=== PATIENT | female | born 1950 | race Caucasian/White ===

== ENCOUNTER 2016-11-14 10:04 | Emergency (ER) | payer MEDICARE, MEDICAID ==
--- NOTE | 2016-11-14 10:32 | ED.PDOC ---
History of Present Illness - General Chief Complaint: Abdominal Pain Stated Complaint: abdominal discomfort right upper quadrant Time Seen by Provider: 11/14/16 10:15 Information Source: patient, RN notes reviewed, Vital Signs reviewed Exam Limitations: no limitations - History of Present Illness Initial Comments: Patient stated that for the last one week had dull intermittent RUQ pain radiating to her back not related to food intake,no diarrhea,good bm felt nauseated at times ,bloated feeling at bedtime.Seen at her md's office 0ne month ago for left sided abdominal pain ct/abd-p:09/23/16-did not show acute findings had also gallbladder sono-no evidence of cholelithiasis or cholecystitis.She was being treated for gi reflux which relieved her left sided abdominal pain with protonix but did not refill prescriptions. Abdominal Pain Onset Location: RUQ Pain Radiation: back Quality: dull, intermittent Timing/Duration: 1 week Improving Factors: nothing Worsening Factors: nothing Associated Symptoms: nausea/vomiting, other - bloated feeling Review of Systems - Review of Systems Constitutional: States: no symptoms reported EENTM: States: no symptoms reported Respiratory: States: no symptoms reported Cardiology: States: no symptoms reported Gastrointestinal/Abdominal: States: see HPI, abdominal pain - ruq Genitourinary: States: no symptoms reported Musculoskeletal: States: no symptoms reported Skin: States: no symptoms reported Neurological: States: no symptoms reported Hematologic/Lymphatic: States: no symptoms reported Past Medical History (General) - Patient Medical History Hx Seizures: No Hx Stroke: Yes - CVA Hx Asthma: No Hx of COPD: No - smoker 2 ppd 40 years Hx Cardiac Disorders: No Hx Congestive Heart Failure: No Hx Pacemaker: No Hx Hypertension: Yes Hx Diabetes: Yes Hx MRSA: No Surgical History: other - cystoscopy 2 months ago for blood in urine done by Dr. Donald-urologist Other Surgeries:: hysterectomy,lumbar,eye,colonoscopy - Vaccination History Hx Tetanus, Diphtheria Vaccination: No Hx Influenza Vaccination: No Hx Pneumococcal Vaccination: No - Social History Hx Tobacco Use: Yes Hx Alcohol Use: No Hx Substance Use: No Hx Substance Use Treatment: No Hx Depression: No Hx Physical Abuse: No Hx Emotional Abuse: No - Female History Patient : No Family Medical History - Family History Mother Family History: Unknown Living Status: Age at (years of age): 71 Cause of : Lung cancer/smoker Hx Family Hypertension: Yes - several family members Hx Family Stroke: Yes - multiple family members Hx Cardiac Disease: Yes - multiple family members Hx Family Cancer: Yes - colon-brother,ovary sister Physical Exam - Physical Exam General Appearance: Alert, Comfortable, No apparent distress Eyes, Ears, Nose, Throat Exam: PERRL/EOMI, normal ENT inspection, TMs normal, pharynx normal Neck: non-tender, full range of motion, supple, normal inspection Respiratory: chest non-tender, lungs clear, normal breath sounds, no respiratory distress, no accessory muscle use Cardiovascular/Chest: normal peripheral pulses, regular rate, rhythm, no edema, no gallop, no JVD, no murmur Peripheral Pulses: No deficit Gastrointestinal/Abdominal: normal bowel sounds, soft, no organomegaly, no pulsatile mass, tenderness - ruq,no peritoneal signs positive murphys Back Exam: normal inspection, no CVA tenderness, no vertebral tenderness Extremity: normal range of motion, non-tender, normal inspection Neurologic: no motor/sensory deficits, alert, normal mood/affect, abnormal cerebellar tests Skin Exam: normal color, warm/dry Lymphatic: no adenopathy Progress - Progress Progress: 11/14/16 12:37 Patient stated RUQ pain getting less after ivf and protonix iv. 11/14/16 12:52 - Results/Orders Results/Orders: 11/14/16 10:35 URINALYSIS Stat 11/14/16 10:45 EKG STAT 11/14/16 11:47 Abdoment/Pelvis w/o Contrast [CT] Stat Laboratory Results WBC 12.4 K/mm3 (4.8-10.8) H 11/14/16 10:50 RBC 5.15 M/mm3 (4.20-5.40) 11/14/16 10:50 Hgb 14.8 gm/dL (12.0-16.0) 11/14/16 10:50 Hct 44.3 % (36.0-47.0) 11/14/16 10:50 MCV 85.9 fl (81.0-99.0) 11/14/16 10:50 MCH 28.8 pg (27.0-31.0) 11/14/16 10:50 MCHC 33.5 g/dL (33.0-37.0) 11/14/16 10:50 RDW 13.3 % (11.5-14.5) 11/14/16 10:50 Plt Count 283 K/mm3 (130-400) 11/14/16 10:50 MPV 7.7 fl (7.40-10.4) 11/14/16 10:50 Absolute Neuts (auto) 8.90 K/uL (1.8-6.8) H 11/14/16 10:50 Absolute Lymphs (auto) 2.30 K/uL (1.0-3.4) 11/14/16 10:50 Absolute Monos (auto) 0.80 K/uL (0.2-0.8) 11/14/16 10:50 Absolute Eos (auto) 0.10 K/uL (0.0-0.4) 11/14/16 10:50 Absolute Basos (auto) 0.20 K/uL (0.0-0.1) H 11/14/16 10:50 Neutrophils % 72.1 % (42.0-78.0) 11/14/16 10:50 Lymphocytes % 18.5 % (20.0-50.0) L 11/14/16 10:50 Monocytes % 6.9 % (2.0-9.0) 11/14/16 10:50 Eosinophils % 1.2 % (1.0-5.0) 11/14/16 10:50 Basophils % 1.3 % (0.0-2.0) 11/14/16 10:50 Sodium 136 mmol/L (135-145) 11/14/16 10:50 Potassium 3.9 mmol/L (3.6-5.0) 11/14/16 10:50 Chloride 105 mmol/L (101-111) 11/14/16 10:50 Carbon Dioxide 25 mmol/L (21-31) 11/14/16 10:50 Anion Gap 9.9 (12-18) L 11/14/16 10:50 BUN 13 mg/dL (7-18) 11/14/16 10:50 Creatinine 0.84 mg/dL (0.6-1.3) 11/14/16 10:50 BUN/Creatinine Ratio 15.5 (10-20) 11/14/16 10:50 Random Glucose 251 mg/dL (70-105) H 11/14/16 10:50 Serum Osmolality 280.5 mOsm/L (275-295) 11/14/16 10:50 Calcium 9.5 mg/dL (8.4-10.2) 11/14/16 10:50 Total Bilirubin 0.5 mg/dL (0.2-1.0) 11/14/16 10:50 AST 23 IU/L (10-42) 11/14/16 10:50 ALT 24 IU/L (10-60) 11/14/16 10:50 Alkaline Phosphatase 110 IU/L (42-121) 11/14/16 10:50 Serum Total Protein 7.4 gm/dL (6.4-8.2) 11/14/16 10:50 Albumin 4.1 g/dl (3.2-5.5) 11/14/16 10:50 Globulin 3.3 gm/dL (2.3-3.5) 11/14/16 10:50 Albumin/Globulin Ratio 1.2 (1.1-1.9) 11/14/16 10:50 Lipase 35 U/L (22-51) 11/14/16 10:50 11/14/16 10:45 EKG STAT Laboratory Results WBC 12.4 K/mm3 (4.8-10.8) H 11/14/16 10:50 RBC 5.15 M/mm3 (4.20-5.40) 11/14/16 10:50 Hgb 14.8 gm/dL (12.0-16.0) 11/14/16 10:50 Hct 44.3 % (36.0-47.0) 11/14/16 10:50 MCV 85.9 fl (81.0-99.0) 11/14/16 10:50 MCH 28.8 pg (27.0-31.0) 11/14/16 10:50 MCHC 33.5 g/dL (33.0-37.0) 11/14/16 10:50 RDW 13.3 % (11.5-14.5) 11/14/16 10:50 Plt Count 283 K/mm3 (130-400) 11/14/16 10:50 MPV 7.7 fl (7.40-10.4) 11/14/16 10:50 Absolute Neuts (auto) 8.90 K/uL (1.8-6.8) H 11/14/16 10:50 Absolute Lymphs (auto) 2.30 K/uL (1.0-3.4) 11/14/16 10:50 Absolute Monos (auto) 0.80 K/uL (0.2-0.8) 11/14/16 10:50 Absolute Eos (auto) 0.10 K/uL (0.0-0.4) 11/14/16 10:50 Absolute Basos (auto) 0.20 K/uL (0.0-0.1) H 11/14/16 10:50 Neutrophils % 72.1 % (42.0-78.0) 11/14/16 10:50 Lymphocytes % 18.5 % (20.0-50.0) L 11/14/16 10:50 Monocytes % 6.9 % (2.0-9.0) 11/14/16 10:50 Eosinophils % 1.2 % (1.0-5.0) 11/14/16 10:50 Basophils % 1.3 % (0.0-2.0) 11/14/16 10:50 Sodium 136 mmol/L (135-145) 11/14/16 10:50 Potassium 3.9 mmol/L (3.6-5.0) 11/14/16 10:50 Chloride 105 mmol/L (101-111) 11/14/16 10:50 Carbon Dioxide 25 mmol/L (21-31) 11/14/16 10:50 Anion Gap 9.9 (12-18) L 11/14/16 10:50 BUN 13 mg/dL (7-18) 11/14/16 10:50 Creatinine 0.84 mg/dL (0.6-1.3) 11/14/16 10:50 BUN/Creatinine Ratio 15.5 (10-20) 11/14/16 10:50 Random Glucose 251 mg/dL (70-105) H 11/14/16 10:50 Serum Osmolality 280.5 mOsm/L (275-295) 11/14/16 10:50 Calcium 9.5 mg/dL (8.4-10.2) 11/14/16 10:50 Total Bilirubin 0.5 mg/dL (0.2-1.0) 11/14/16 10:50 AST 23 IU/L (10-42) 11/14/16 10:50 ALT 24 IU/L (10-60) 11/14/16 10:50 Alkaline Phosphatase 110 IU/L (42-121) 11/14/16 10:50 Serum Total Protein 7.4 gm/dL (6.4-8.2) 11/14/16 10:50 Albumin 4.1 g/dl (3.2-5.5) 11/14/16 10:50 Globulin 3.3 gm/dL (2.3-3.5) 11/14/16 10:50 Albumin/Globulin Ratio 1.2 (1.1-1.9) 11/14/16 10:50 Lipase 35 U/L (22-51) 11/14/16 10:50 Urine Color Yellow (Yellow) 11/14/16 12:14 Urine Appearance Clear (Clear) 11/14/16 12:14 Urine pH 5.0 (4.5-7.8) 11/14/16 12:14 Ur Specific [place] 1.020 (1.005-1.030) 11/14/16 12:14 Urine Protein Negative mg/dL 11/14/16 12:14 Urine Glucose (UA) Negative mg/dL (Negative) 11/14/16 12:14 Urine Ketones Negative mg/dL (NEGATIVE) 11/14/16 12:14 Urine Blood Moderate (Negative) H 11/14/16 12:14 Urine Nitrite Negative 11/14/16 12:14 Urine Bilirubin Negative (NEGATIVE) 11/14/16 12:14 Urine Urobilinogen 0.2 mg/dL (0.2-1.0) 11/14/16 12:14 Ur Leukocyte Esterase Negative (Negative) 11/14/16 12:14 Urine RBC 5-10 /hpf H 11/14/16 12:14 Urine WBC 0 /hpf 11/14/16 12:14 Ur Epithelial Cells 1-3 /hpf 11/14/16 12:14 Urine Bacteria 0 11/14/16 12:14 CT ABD/PELVIS: no acute abnormalities noted - EKG/XRAY/CT XRAY: chest - no acute abnormalities noted Departure - Departure Clinical Impression: Right upper quadrant abdominal pain, Hematuria, microscopic, Fatty liver disease, nonalcoholic, Nicotine use disorder, Diabetes mellitus treated with insulin and oral medication Time of Disposition: 12:37 Disposition: Discharge to Home or Self Care Condition: Good Departure Forms: ED Discharge - Pt. Copy, Patient Portal Self Enrollment Instructions: DI for Abdominal Pain-Adult, Reasons to Quit Smoking, Smoking Cessation for Older Adults: It's Not Too Late!, Smoking Cessation Drugs: Nicotine Replacement Products, Nicotine Addiction Diet: low fat, low cholesterol, other - avoid spicy foods Referrals: Naldo Cervantes MD [Primary Care Provider] - 1-2 Weeks Prescriptions: Pantoprazole Sodium 40 mg PO BEDTIME #30 tab Home Medications: Ambulatory Orders Clonazepam 0.5 mg PO BEDTIME PRN 11/21/15 HYDROcodone 5MG/APAP 325MG [[place] 5/325] 1 - 2 tab PO Q4H PRN 11/21/15 Insulin Aspart [Novolog Flexpen] See Protocol SC ACHS 11/21/15 Insulin Glargine [Lantus Solostar] 12 unit SC DAILY 11/21/15 Metformin HCl 500 mg PO BID 11/21/15 Linaclotide [Linzess] 145 mcg PO DAILY 11/14/16 Pantoprazole Sodium 40 mg PO BEDTIME #30 tab 11/14/16 Pantoprazole Sodium [Protonix] 40 mg PO DAILY 11/14/16
[2016-11-14] MEDS ORDERED: PANTOPRAZOLE SODIUM IV 40 MG VIAL IV ONE (10:36)
--- NOTE | 2016-11-14 11:42 | RAD ---
EXAM DESCRIPTION: XR CHEST 2 VIEWS CLINICAL HISTORY: 65 y/o F, pain COMPARISON: None TECHNIQUE: Two views of the chest. FINDINGS: The lungs are clear. The heart is normal in size. There is no pneumothorax or pleural effusion. There is no acute fracture. IMPRESSION: No acute cardiopulmonary abnormality. Electronically signed by: Luis Parham MD 11/14/2016 11:41
[2016-11-14 11:44] VITALS: TEMP 97.6; O2SAT 95
--- NOTE | 2016-11-14 12:27 | CT ---
EXAM DESCRIPTION: CT ABDOMEN PELVIS WITHOUT IV CONTRAST CLINICAL HISTORY: 65 y/o F, abdominal pain COMPARISON: 09/23/2016. TECHNIQUE: Axial CT images were obtained from the lung bases down to the pubic symphysis without IV contrast. Sagittal coronal reformats were performed. DLP 561 FINDINGS: The lung bases are clear. The liver is hypodense. The gallbladder, pancreas, spleen, and adrenal glands are unremarkable. Both kidneys appear unremarkable. There is no evidence of nephrolithiasis or hydronephrosis. There is no intraperitoneal free air or fluid. There is no lymphadenopathy. There is a small hiatal hernia. The small bowel is unremarkable. The appendix is normal. The colon is incompletely distended scattered diverticular noted without evidence of diverticulitis. There are changes of a hysterectomy. The urinary bladder is unremarkable. Again noted is a lucent lesion with sclerotic margins along the left iliac bone. IMPRESSION: No acute findings. Small hiatal hernia. Fatty liver. Electronically signed by: Luis Parham MD 11/14/2016 12:25
[2016-11-14 13:26] VITALS: BP 132/71
== END 2016-11-14 13:00 | disposition home or self-care (01) ==
LOC: ER 10:04
DX: K76.0 Fatty (change of) liver, not elsewhere classified (principal); R31.9 Hematuria, unspecified; E11.9 Type 2 diabetes mellitus without complications; Z79.4 Long term (current) use of insulin; F17.200 Nicotine dependence, unspecified, uncomplicated; Z86.73 Personal history of transient ischemic attack (TIA), and cerebral infarction without residual deficits; Z80.1 Family history of malignant neoplasm of trachea, bronchus and lung

== ENCOUNTER → 2016-11-24 | Outpatient (CLI) | payer MEDICARE, MEDICAID | LOC: LAB.NP 15:29 | PROVIDERS: ATTEND Family Medicine | DX: K76.0 Fatty (change of) liver, not elsewhere classified (principal); R76.0 Raised antibody titer; R31.29 Other microscopic hematuria; R93.8 Abnormal findings on diagnostic imaging of other specified body structures ==

== ENCOUNTER → 2016-11-27 | Outpatient (CLI) | payer MEDICARE, MEDICAID ==
--- NOTE | 2016-11-30 07:41 | MRI ---
EXAM DESCRIPTION: MR PELVIS WITHOUT IV CONTRAST CLINICAL HISTORY: 65 y/o F, centrally lucent peripherally sclerotic left iliac bone lesion on CT November 14, 2006 T COMPARISON: None TECHNIQUE: Noncontrast MR imaging pelvis standard protocol FINDINGS: The left iliac bone lesion is nonaggressive in appearance. This appears to contain fatty elements as well as sclerotic component. 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 This lesion dates back to at least 2011 on previous [address]s. There are small Tarlov cysts/dural ectasia in the upper sacrum. No active sacroiliitis. No acute fracture. No aggressive destructive pelvic lesion. The left iliacus lesion measures approximately 2.8 cm in AP dimension by 1.3 cm wide by 2.9 cm craniocaudal. Mild right greater trochanteric bursal edema. No osteonecrosis of the hips. No acute fracture of the hips. There is degenerative disc disease in the lower lumbar spine. Transitional lumbosacral anatomy at L5-S1. 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
== END | disposition home or self-care (01) ==
LOC: MRI 13:53
PROVIDERS: ATTEND Family Medicine
DX: M85.68 Other cyst of bone, other site (principal)

== ENCOUNTER → 2016-12-22 | Outpatient (CLI) | payer MEDICARE, MEDICAID | LOC: GMAM 14:07 | PROVIDERS: ATTEND Family Medicine | DX: M25.50 Pain in unspecified joint (principal); R31.29 Other microscopic hematuria; I10 Essential (primary) hypertension; E11.9 Type 2 diabetes mellitus without complications ==

== ENCOUNTER → 2016-12-29 | Outpatient (CLI) | payer MEDICARE, MEDICAID | END | disposition home or self-care (01) | LOC: GMAM 14:32 | PROVIDERS: ATTEND Family Medicine | DX: R31.29 Other microscopic hematuria (principal) ==

== ENCOUNTER → 2017-05-14 | Outpatient (CLI) | payer MEDICARE, MEDICAID | END | disposition home or self-care (01) | LOC: GMAM 13:12 | PROVIDERS: ATTEND Family Medicine | DX: Z79.899 Other long term (current) drug therapy (principal) ==

== ENCOUNTER → 2017-07-01 | Outpatient (CLI) | payer MEDICARE, MEDICAID | END | disposition home or self-care (01) | LOC: LAB.O 08:44 | PROVIDERS: ATTEND Nurse Practitioner Family | DX: R19.7 Diarrhea, unspecified (principal) ==

== ENCOUNTER → 2017-08-06 | Outpatient (CLI) | payer MEDICARE, MEDICAID | END | disposition home or self-care (01) | LOC: GMAM 12:05 | PROVIDERS: ATTEND Family Medicine | DX: R19.7 Diarrhea, unspecified (principal) ==

== ENCOUNTER → 2017-08-10 | Outpatient (CLI) | payer MEDICARE, MEDICAID | END | disposition home or self-care (01) | LOC: GMAM 14:27 | PROVIDERS: ATTEND Family Medicine | DX: Z79.899 Other long term (current) drug therapy (principal) ==

== ENCOUNTER → 2017-08-11 | Outpatient (CLI) | payer MEDICARE, MEDICAID ==
--- NOTE | 2017-08-12 14:22 | CT ---
EXAM DESCRIPTION: Abdomen/Pelvis w/o Contrast: CT. CLINICAL HISTORY: RUQ PAIN COMPARISON: None. TECHNIQUE: Spiral-axial scans 5.0 mm intervals through the abdomen and pelvis without oral or IV contrast. Coronal and sagittal coronal and sagittal 2.0 mm reconstructions. Total Exam DLP: 444.56 mGy-cm. This exam was performed according to our departmental CT dose-optimization program which includes automated exposure control, adjustment of the mA and/or kV according to patient size and/or use of iterative reconstruction technique; to reduce radiation dose to as low as reasonably achievable (ALARA). FINDINGS: Lung bases and pleura: Unremarkable. Liver, stomach, spleen, and adrenal glands: Minimally decreased density diffusely in the liver. Normal size. Spleen and adrenal glands are unremarkable. Small sliding hiatal hernia. Pancreas, Gallbladder, and Ducts: Layering densities possibly sludge or small stones in the gallbladder. Proximal common bile duct dilated. Normal size and density in the spleen. Kidneys and Ureters: Negative. Mesentery: No stranding fascial thickening free fluid or free air. Aorta: Minimal atherosclerotic calcification with no aneurysm. No para-aortic mass. Small Bowel: Contains gas and fluid with no distention or significant wall thickening. Minimal fecalization in the distal ileum. Terminal Ileum/Cecum: Normal caliber. Normal caliber and density of the appendix. Normal density of the surrounding mesentery. Colon: Minimal fecal material. Not distended. Small diverticula in the distal colon with no signs of inflammation. Pelvic Organs: Vaginal cuff is unremarkable. No fluid in the cul-de-sac. Ovarian tissue is not seen. Spine and Bony Pelvis: Interbody fusion device at L4-5 with posterior decompression. Bilateral foraminal narrowing. Anterior spondylosis L2-3 posterior disc bulge. Spondylosis in the inferior thoracic spine. Minimal gas formation in the SI joints. Hypertrophic changes bilateral acetabula. Abdominal Wall/Back Soft Tissues: Periumbilical hernia not containing bowel. Small bilateral fatty hernias not containing bowel. IMPRESSION: 1. Mild fatty infiltration/steatosis of the liver without enlargement. This can be due to a variety of metabolic and toxic conditions. No ascites. 2. Possible layering sludge or stones in the gallbladder. Dilation of the proximal common bile duct. Please see ultrasound right upper quadrant abdomen examination and report. 3. Small sliding hiatal hernia. 4. Diverticulosis in the distal colon without evidence of inflammation. 5. Prior interbody lumbar fusion L4-5. Foraminal narrowing. Posterior disc bulge L2-3. 6. Small periumbilical fatty hernia not containing bowel. Bilateral small fatty inguinal hernias not containing bowel. Electronically signed by: Vito Dickey MD 08/12/2017 2:21 PM CDT
--- NOTE | 2017-08-12 14:32 | US ---
EXAM DESCRIPTION: Gall Bladder: ULTRASOUND. CLINICAL HISTORY: RUQ PAIN COMPARISON: CT scan of abdomen and pelvis without contrast on this visit. TECHNIQUE: Transabdominal scannin-dimensional and Doppler modes. FINDINGS: The gallbladder is normal in size, shape, and echogenicity, with no intraluminal stones or sludge. No fluid around the gallbladder. No wall thickening. 2.7 mm. Common bile duct caliber is 5.7 mm which is within normal limits. . No stones in the visualized portion of the duct. Not tender with transducer pressure. The liver demonstrates increased echogenicity; contour of the liver capsule is smooth where seen. No fluid around the liver. Intrahepatic biliary ducts are non-dilated. Craniocaudal dimension in the mid-clavicular axis is 14.4 cm. Pancreas head, body, tail normal in size and echogenicity. Pancreatic duct is not dilated. Normal Doppler vascularity in the carlos hepatis. Abdominal aorta proximal 2.5 cm. IVC visualized and normal caliber. Right kidney measures 9.4 x 5.1 x 3.6 cm. Normal mid renal cortical thickness. Echogenicity normal with no hydronephrosis, no large calcifications, and no perinephric fluid. Contour smooth and vascularity normal. Proximal ureter not visualized. IMPRESSION: 1. Normal ultrasound of the gallbladder and ducts. No sludge or stones. Normal ducts caliber. If clinical suspicion for gallbladder disease is discordant with these findings, consider radionuclide hepatobiliary imaging. 2. Fatty infiltration/steatosis minimal in the liver with no enlargement. Normal intrahepatic ducts. No ascites. 3. Normal ultrasound of the pancreas and right kidney. Electronically signed by: Vito Dickey MD 08/12/2017 2:31 PM CDT
== END ==
LOC: CT 14:56
PROVIDERS: ATTEND Family Medicine
DX: K44.9 Diaphragmatic hernia without obstruction or gangrene (principal); K42.9 Umbilical hernia without obstruction or gangrene; K57.30 Diverticulosis of large intestine without perforation or abscess without bleeding; R79.82 Elevated C-reactive protein (CRP); R79.9 Abnormal finding of blood chemistry, unspecified; R19.7 Diarrhea, unspecified; I50.31 Acute diastolic (congestive) heart failure; K76.0 Fatty (change of) liver, not elsewhere classified

== ENCOUNTER → 2017-09-14 | Outpatient (CLI) | payer MEDICARE, MEDICAID | END | disposition home or self-care (01) | LOC: GMAM 11:01 | PROVIDERS: ATTEND Family Medicine | DX: K76.0 Fatty (change of) liver, not elsewhere classified (principal); R94.5 Abnormal results of liver function studies ==

== ENCOUNTER 2017-09-29 16:01 | Emergency (ER) | payer MEDICARE, MEDICAID ==
[2017-09-29] MEDS ORDERED: SODIUM CHLORIDE 0.9% 1000ML 1,000 ML IVS ONE (17:20)
--- NOTE | 2017-09-29 17:24 | ED.PDOC ---
History of Present Illness - General Chief Complaint: GI Problem Stated Complaint: nausea/vomiting/ diahrrea Time Seen by Provider: 09/29/17 16:31 Source: patient Exam Limitations: no limitations - History of Present Illness Initial Comments: [address] HEBERT, HER REG DR, HAS CDIFF W/U IN PROCESS. A RESULT, PT DEHYDRATED AND FEELS WEAK. DENIES NEED FOR NAUSEA MED PRESENTLY. Severity: moderate Improving Factors: nothing Worsening Factors: nothing Associated Symptoms: nausea/vomiting, weakness Allergies/Adverse Reactions: Allergies NO KNOWN ALLERGY Allergy (Verified 02/16/15 20:41) Home Medications: Ambulatory Orders Clonazepam 0.5 mg PO BEDTIME PRN 11/21/15 HYDROcodone 5MG/APAP 325MG [[place] 5/325] 1 - 2 tab PO Q4H PRN 11/21/15 Insulin Aspart [Novolog Flexpen] See Protocol SC ACHS 11/21/15 Insulin Glargine [Lantus Solostar] 12 unit SC DAILY 11/21/15 Metformin HCl 500 mg PO BID 11/21/15 Linaclotide [Linzess] 145 mcg PO DAILY 11/14/16 Pantoprazole Sodium 40 mg PO BEDTIME #30 tab 11/14/16 Pantoprazole Tablet [Protonix] 40 mg PO DAILY 11/14/16 Review of Systems - Review of Systems Constitutional: States: weakness. Denies: chills, fever EENTM: States: no symptoms reported Respiratory: States: no symptoms reported Cardiology: States: no symptoms reported Gastrointestinal/Abdominal: States: diarrhea, nausea, vomiting. Denies: abdominal pain, constipation Genitourinary: Denies: dysuria, frequency Musculoskeletal: States: no symptoms reported Skin: States: no symptoms reported Neurological: States: headache, weakness - GENERALIZED. Denies: tingling Endocrine: States: no symptoms reported Hematologic/Lymphatic: States: no symptoms reported All other Systems: Reviewed and Negative Past Medical History (General) - Patient Medical History Hx Seizures: No Hx Stroke: Yes - 6-7 years ago Hx Dementia: No Hx Asthma: No Hx of COPD: No Hx Cardiac Disorders: No Hx Congestive Heart Failure: No Hx Pacemaker: No Hx Hypertension: No Hx Thyroid Disease: No Hx Diabetes: Yes Hx Gastroesophageal Reflux: Yes Hx Renal Disease: No Hx Cancer: No Hx of HIV: No Hx Hepatitis C: No Hx MRSA: No Surgical History: Hysterectomy, other - Vaccination History Hx Tetanus, Diphtheria Vaccination: No Hx Influenza Vaccination: Yes Hx Pneumococcal Vaccination: No Immunizations Up to Date: No - Social History Hx Tobacco Use: Yes Hx Chewing Tobacco Use: No Hx Alcohol Use: No Hx Substance Use: No Hx Substance Use Treatment: No Hx Depression: No Feels Threatened In Home Enviroment: No Feels Threatened In a Relationship: No Hx Physical Abuse: No Hx Emotional Abuse: No Hx Suspected Abuse: No - Activities of Daily Living Hospice Agency (if applicable):: None - Female History Patient is a Female of Child Bearing Age (10 -59 yrs old): No Patient : No Family Medical History - Family History Mother Family History: Unknown Living Status: Age at (years of age): 71 Cause of : Lung cancer/smoker Hx Family Hypertension: Yes - several family members Hx Family Stroke: Yes - multiple family members Hx Cardiac Disease: Yes - multiple family members Hx Family Cancer: Yes - colon-brother,ovary sister Physical Exam - Physical Exam General Appearance: Alert, Other - UNCOMFORTABLE Eye Exam: bilateral normal Ears, Nose, Throat: hearing grossly normal, normal ENT inspection Neck: full range of motion, supple Respiratory: chest non-tender, lungs clear, normal breath sounds Cardiovascular/Chest: normal peripheral pulses, regular rate, rhythm Peripheral Pulses: radial,right: 2+, radial,left: 2+ Gastrointestinal/Abdominal: non tender, soft, other - HYPERACTIVE BOWEL SOUNDS. Back Exam: no CVA tenderness Extremity: normal range of motion, normal inspection Neurologic: no motor/sensory deficits, alert, normal mood/affect Skin Exam: normal color, warm/dry Lymphatic: no adenopathy Progress - Results/Orders Results/Orders: REPEAT SBP 147. PT FEELING IMPROVED ENERGY AFTER BOLUS. CMP AND UA UNREMARKABLE. CBC WBC 12.5, ELEV NEUTS. I SURMISE SHE HAS CDIFF WITH 3 MOS DIARRHEA AND NEUTROPHILIC LEUKOCYTOSIS, RESULTING IN DEHYDRATION AND GEN WEAKNESS. PT ALREADY TAKES PROBIOTICS DAILY. DC TO HOME WITH F/U WITH PCP TO POSSIBLE TAKE 3RD TEST FOR CDIFF. Departure - Departure Clinical Impression: Dehydration, Generalized weakness, Nausea & vomiting, Diarrhea, Neutrophilic leukocytosis Disposition: Discharge to Home or Self Care Condition: Fair Departure Forms: ED Discharge - Pt. Copy, Patient Portal Self Enrollment Instructions: Diarrhea Diet: resume usual diet Activity: increase activity as tolerated Referrals: Naldo Hebert MD [Primary Care Provider] - 1-5 Days Home Medications: Ambulatory Orders Clonazepam 0.5 mg PO BEDTIME PRN 11/21/15 HYDROcodone 5MG/APAP 325MG [[place] 5/325] 1 - 2 tab PO Q4H PRN 11/21/15 Insulin Aspart [Novolog Flexpen] See Protocol SC ACHS 11/21/15 Insulin Glargine [Lantus Solostar] 12 unit SC DAILY 11/21/15 Metformin HCl 500 mg PO BID 11/21/15 Linaclotide [Linzess] 145 mcg PO DAILY 11/14/16 Pantoprazole Sodium 40 mg PO BEDTIME #30 tab 11/14/16 Pantoprazole Tablet [Protonix] 40 mg PO DAILY 11/14/16 Additional Instructions: Please drink at least 64 oz per day of water to replace the fluids you are losing. Please follow-up with your regular doctor for possible 3rd C.Diff test. It was good meeting you. I hope you feel better soon.
[2017-09-29 18:35] VITALS: BP 134/60; TEMP 97.1; O2SAT 97
== END 2017-09-29 19:06 | disposition home or self-care (01) ==
LOC: ER 16:01
DX: E86.0 Dehydration (principal); R53.1 Weakness; R11.2 Nausea with vomiting, unspecified; D72.828 Other elevated white blood cell count; R19.7 Diarrhea, unspecified; E11.9 Type 2 diabetes mellitus without complications; K21.9 Gastro-esophageal reflux disease without esophagitis; Z79.899 Other long term (current) drug therapy; Z86.73 Personal history of transient ischemic attack (TIA), and cerebral infarction without residual deficits
CPT/HCPCS: 36415; 80053; 81001; 85025; J7030

== ENCOUNTER → 2017-12-08 | Outpatient (CLI) | payer MEDICARE, MEDICAID | LOC: GMATM 20:03 | PROVIDERS: ATTEND Nurse Practitioner Family | DX: R53.83 Other fatigue (principal) ==

== ENCOUNTER → 2018-01-14 | Outpatient (CLI) | payer MEDICARE, MEDICAID | LOC: GMAM 13:45 | PROVIDERS: ATTEND Family Medicine | DX: R53.83 Other fatigue (principal); E78.2 Mixed hyperlipidemia; E55.9 Vitamin D deficiency, unspecified; R30.0 Dysuria; E53.8 Deficiency of other specified B group vitamins; E11.9 Type 2 diabetes mellitus without complications ==

== ENCOUNTER → 2018-02-03 | Outpatient (CLI) | payer MEDICARE, MEDICAID | LOC: GMAM 16:50 | PROVIDERS: ATTEND Family Medicine | DX: R30.0 Dysuria (principal); M54.5 Low back pain ==

== ENCOUNTER → 2018-03-18 | Outpatient (CLI) | payer MEDICARE, MEDICAID | LOC: GMATM 11:53 | PROVIDERS: ATTEND Nurse Practitioner Family | DX: N39.0 Urinary tract infection, site not specified (principal); M54.5 Low back pain ==

== ENCOUNTER → 2018-04-14 | Outpatient (CLI) | payer MEDICARE, MEDICAID | LOC: GMAJS 17:34 | PROVIDERS: ATTEND Physician Assistant | DX: R30.0 Dysuria (principal) ==

== ENCOUNTER → 2018-07-27 | Outpatient (CLI) | payer MEDICARE, MEDICAID ==
--- NOTE | 2018-07-28 08:42 | MRI ---
Study: MRI of the Right Shoulder. Indication: PAIN Technique: Multiplanar, multi sequence MRI of the right shoulder was obtained without intravenous contrast. Comparison: None. Findings: Mild hypertrophic AC joint osteoarthritis. Type I acromion with moderate lateral downsloping. Supraspinatus and infraspinatus tendinosis with scattered bursal surface fraying of both tendons. At the critical zone of the mid to posterior supraspinatus tendon there is irregular low to intermediate grade articular tearing measuring approximately 12 mm AP by 5 mm transverse. No full-thickness extension or tendon retraction. Mild interstitial fissuring of the infraspinatus tendon insertion noted with minimal ganglion formation along the anterior and mid myotendinous junction which measures up to 12 mm. Subscapularis tendinosis. Teres minor tendon intact. Rotator cuff musculature normal without atrophy, fatty infiltration, or intramuscular edema. Intracapsular long head biceps tendinosis. Mild cystic change posterolateral greater tuberosity. Circumferential labral truncation and degeneration. Mild glenohumeral joint osteoarthritis. No acute fracture. Thickening and edema inferior glenohumeral ligament which can be seen with adhesive capsulitis. Impression: Supraspinatus and infraspinatus tendinosis with scattered bursal surface fraying of both tendons as well as intermediate grade articular tearing throughout the mid to posterior supraspinatus critical zone. Additional mild interstitial fissuring of the infraspinatus tendon noted. Subscapularis tendinosis. Intracapsular long head biceps tendinosis. Circumferential labral truncation and degeneration. Mild glenohumeral joint osteoarthritis. Adhesive capsulitis. Mild hypertrophic AC joint osteoarthritis. Electronically signed by: Jasvir Shields MD 07/28/2018 8:40 AM CDT
== END ==
LOC: MRI 10:00
PROVIDERS: ATTEND Family Medicine
DX: M75.01 Adhesive capsulitis of right shoulder (principal); M19.011 Primary osteoarthritis, right shoulder

== ENCOUNTER → 2018-08-04 | Outpatient (CLI) | payer MEDICARE, MEDICAID ==
--- NOTE | 2018-08-04 17:30 | US ---
EXAM DESCRIPTION: Venous,Upper Extremity RT CLINICAL HISTORY: SWELLING OF RIGHT ARM COMPARISON: None Available. TECHNIQUE: Right upper extremity venous duplex FINDINGS: Doppler evaluation of the right upper extremity deep veins was performed. Normal color flow is seen in the internal jugular and subclavian veins as well as right axillary and brachial and basilic veins. Radial and ulnar venous flow is depicted. No cephalic vein images. Normal venous compressibility and flow augmentation. IMPRESSION: Negative for evidence of deep venous thrombosis on right upper extremity venous Doppler sonogram. Electronically signed by: Ceferino Haines MD 08/04/2018 5:29 PM CDT
== END ==
LOC: US 09:00
PROVIDERS: ATTEND Family Medicine
DX: R60.9 Edema, unspecified (principal)

== ENCOUNTER → 2018-08-19 | Outpatient (CLI) | payer MEDICARE, MEDICAID ==
--- NOTE | 2018-08-19 13:09 | RAD ---
EXAM DESCRIPTION: Shoulder,Right 2 or More Views CLINICAL HISTORY: 67 years Female, PAIN IN RT SHOULDER COMPARISON: Radiographs dated 07/26/2018. FINDINGS: The visualized bones are well-mineralized.No acute fracture or dislocation. The soft tissues appear grossly unremarkable. Mild acromioclavicular and glenohumeral joint osteoarthritis. IMPRESSION: Mild acromioclavicular and glenohumeral joint osteoarthritis. Electronically signed by: Carley Beck MD 08/19/2018 1:08 PM CDT
== END ==
LOC: RAD 11:00
PROVIDERS: ATTEND Orthopaedic Surgery
DX: M19.011 Primary osteoarthritis, right shoulder (principal); M25.511 Pain in right shoulder

== ENCOUNTER 2018-11-07 10:56 | Emergency (ER) | payer MEDICARE, MEDICAID ==
--- NOTE | 2018-11-07 11:43 | RAD ---
EXAM DESCRIPTION: Chest,1 View CLINICAL HISTORY: 67 years Female, cough COMPARISON: None. TECHNIQUE: AP portable chest. FINDINGS: Heart size is normal with normal pulmonary vascularity. No consolidating infiltrate. No pulmonary mass or worrisome nodule. No pneumothorax or pleural effusion. Bones are unremarkable. IMPRESSION: No acute process is identified in the chest. Electronically signed by: Ceferino Haines MD 11/07/2018 11:41 AM [employer]
[2018-11-07] MEDS ORDERED: IPRATROPIUM/ALBUTEROL 3 ML VIAL NEB ONE (11:53)
[2018-11-07] MEDS ORDERED: ONDANSETRON INJ 4 MG/2 ML VIAL IV ONE (11:54)
[2018-11-07] MEDS ORDERED: MORPHINE SULFATE INJ 10 MG/ML VIAL IV ONE (11:55)
--- NOTE | 2018-11-07 11:58 | ED.PDOC ---
History of Present Illness - General Chief Complaint: Respiratory Problem Stated Complaint: cough, shortness of breath Time Seen by Provider: 11/07/18 11:18 Source: patient Exam Limitations: no limitations - History of Present Illness Comments: Four day hx of cough with chest pain, SOB, and nausea over last 2 days Timing/Duration: week Cough Quality/Degree: productive cough Possible Cause: occasional episodes Improving Factors: nothing Worsening Factors: movement Associated Symptoms: chest pain/soreness, cough, dizziness, fever/chills, headache, muscle aches Allergies/Adverse Reactions: Allergies NO KNOWN ALLERGY Allergy (Verified 02/16/15 20:41) Home Medications: Ambulatory Orders Clonazepam 0.5 mg PO BEDTIME PRN 11/21/15 HYDROcodone 5MG/APAP 325MG [[place] 5/325] 1 - 2 tab PO Q4H PRN 11/21/15 Insulin Aspart [Novolog Flexpen] See Protocol SC ACHS 11/21/15 Insulin Glargine [Lantus Solostar] 12 unit SC DAILY 11/21/15 Metformin HCl 500 mg PO BID 11/21/15 Linaclotide [Linzess] 145 mcg PO DAILY 11/14/16 Pantoprazole Sodium 40 mg PO BEDTIME #30 tab 11/14/16 Pantoprazole Tablet [Protonix] 40 mg PO DAILY 11/14/16 Azithromycin Tab [Zithromax Tab] 250 mg PO QDAC #6 tab 11/07/18 Ondansetron [Zofran Odt] 4 mg PO Q4HR PRN #14 tab 11/07/18 Sucralfate Suspension [Carafate Suspension] 10 ml PO AC #500 ml 11/07/18 Review of Systems - Review of Systems Constitutional: States: chills, fever, weakness EENTM: States: no symptoms reported Respiratory: States: cough, short of breath Cardiology: States: chest pain. Denies: edema Gastrointestinal/Abdominal: States: nausea, vomiting. Denies: abdominal pain, diarrhea Genitourinary: States: no symptoms reported Musculoskeletal: States: muscle pain Skin: States: no symptoms reported Neurological: States: headache Endocrine: States: no symptoms reported Hematologic/Lymphatic: States: no symptoms reported Past Medical History (General) - Patient Medical History Hx Seizures: No Hx Stroke: Yes - 6-7 years ago Hx Dementia: No Hx Asthma: No Hx of COPD: No Hx Cardiac Disorders: No Hx Congestive Heart Failure: No Hx Pacemaker: No Hx Hypertension: Yes Hx Thyroid Disease: No Hx Diabetes: Yes Hx Gastroesophageal Reflux: Yes Hx Renal Disease: No Hx Cancer: No Hx of HIV: No Hx Hepatitis C: No Hx MRSA: No Surgical History: other - Vaccination History Hx Tetanus, Diphtheria Vaccination: No Hx Influenza Vaccination: Yes Hx Pneumococcal Vaccination: No - Social History Hx Tobacco Use: Yes Hx Chewing Tobacco Use: No Hx Alcohol Use: No Hx Substance Use: No Hx Substance Use Treatment: No Hx Depression: No Hx Physical Abuse: No Hx Emotional Abuse: No Hx Suspected Abuse: No - Female History Patient : No Family Medical History - Family History Mother Family History: Unknown Living Status: Age at (years of age): 71 Cause of : Lung cancer/smoker Hx Family Hypertension: Yes - several family members Hx Family Stroke: Yes - multiple family members Hx Cardiac Disease: Yes - multiple family members Hx Family Cancer: Yes - colon-brother,ovary sister Physical Exam - Physical Exam General Appearance: Alert, Obvious distress Eye Exam: bilateral normal ENT Exam: normal ENT inspection, hearing grossly normal, pharynx normal Neck: full range of motion, normal inspection Respiratory: decreased breath sounds, rhonchi Cardiovascular/Chest: regular rate, rhythm, no edema Gastrointestinal/Abdominal: normal bowel sounds, non tender, soft Extremity: normal range of motion, non-tender, no pedal edema Neurologic: alert, normal mood/affect, oriented x 3 Progress - EKG/XRAY/CT EKG: Sinus, no ST T wave changes Comments: rate 90, NH 160, QRS 100 Departure - Departure Clinical Impression: Bronchitis Gastroesophageal reflux disease Qualifiers: Esophagitis presence: with esophagitis Qualified Code(s): K21.0 - Gastro- esophageal reflux disease with esophagitis Disposition: Discharge to Home or Self Care Condition: Fair Departure Forms: ED Discharge - Pt. Copy, Patient Portal Self Enrollment Referrals: Naldo Cervantes MD [Primary Care Provider] - 1-2 Weeks Prescriptions: Ondansetron [Zofran Odt] 4 mg PO Q4HR PRN #14 tab PRN Reason: Nausea Azithromycin Tab [Zithromax Tab] 250 mg PO QDAC #6 tab Sucralfate Suspension [Carafate Suspension] 10 ml PO AC #500 ml Home Medications: Ambulatory Orders Clonazepam 0.5 mg PO BEDTIME PRN 11/21/15 HYDROcodone 5MG/APAP 325MG [[place] 5/325] 1 - 2 tab PO Q4H PRN 11/21/15 Insulin Aspart [Novolog Flexpen] See Protocol SC ACHS 11/21/15 Insulin Glargine [Lantus Solostar] 12 unit SC DAILY 11/21/15 Metformin HCl 500 mg PO BID 11/21/15 Linaclotide [Linzess] 145 mcg PO DAILY 11/14/16 Pantoprazole Sodium 40 mg PO BEDTIME #30 tab 11/14/16 Pantoprazole Tablet [Protonix] 40 mg PO DAILY 11/14/16 Azithromycin Tab [Zithromax Tab] 250 mg PO QDAC #6 tab 11/07/18 Ondansetron [Zofran Odt] 4 mg PO Q4HR PRN #14 tab 11/07/18 Sucralfate Suspension [Carafate Suspension] 10 ml PO AC #500 ml 11/07/18
[2018-11-07] MEDS ORDERED: ALUM & MAG HYDROX-SIMETHICONE 30 ML, LIDOCAINE VISCOUS 2% 15 ML PO ONE ×2 (13:20)
[2018-11-07] MEDS ORDERED: ALUM & MAG HYDROX-SIMETHICONE 30 ML UD ONE (13:22)
[2018-11-07] MEDS ORDERED: LIDOCAINE HCL 2% (MOUTH-THROAT) 15 ML UD ONE (13:22)
[2018-11-07 14:05] VITALS: BP 121/67; TEMP 99.1; O2SAT 96
== END 2018-11-07 13:55 | disposition home or self-care (01) ==
LOC: ER 10:56
DX: J40 Bronchitis, not specified as acute or chronic (principal); K21.0 Gastro-esophageal reflux disease with esophagitis; I10 Essential (primary) hypertension; E11.9 Type 2 diabetes mellitus without complications; Z87.891 Personal history of nicotine dependence; Z86.73 Personal history of transient ischemic attack (TIA), and cerebral infarction without residual deficits; Z79.4 Long term (current) use of insulin; Z79.899 Other long term (current) drug therapy
CPT/HCPCS: 36415; 71045; 80053; 85025; 87040; 94640; J2270; J2405; J7620

== ENCOUNTER → 2018-11-28 | Outpatient (CLI) | payer MEDICARE, MEDICAID | LOC: GMAL 16:50 | PROVIDERS: ATTEND Family Medicine | DX: E53.8 Deficiency of other specified B group vitamins (principal); R53.83 Other fatigue; E55.9 Vitamin D deficiency, unspecified ==

== ENCOUNTER 2018-12-06 01:52 | Emergency (ER) | payer MEDICARE, MEDICAID ==
--- NOTE | 2018-12-06 02:20 | ED.PDOC ---
History of Present Illness - General Chief Complaint: ENT Problem Stated Complaint: EYe and ear pain Time Seen by Provider: 12/06/18 02:14 Source: patient Exam Limitations: no limitations - History of Present Illness Initial Comments: Patient presents with a cough for one week. It is productive of green sputum. She also has had a fever. She complains of otalgia in the right ear and green eye exudate. She said that she was given Keflex two days ago but doesn't know what for. She said she couldn't take it because it made her weak. She went to the doctor again today and said that she was tested for the flu but doesn't know the result. She is a poor historian who generalizes almost every question but the previously mentioned seem to be her major concern. Timing/Duration: 1 week Severity: moderate Improving Factors: nothing Worsening Factors: nothing Associated Symptoms: other - see HPI Allergies/Adverse Reactions: Allergies NO KNOWN ALLERGY Allergy (Verified 02/16/15 20:41) Home Medications: Ambulatory Orders Clonazepam 0.5 mg PO BEDTIME PRN 11/21/15 HYDROcodone 5MG/APAP 325MG [[place] 5/325] 1 - 2 tab PO Q4H PRN 11/21/15 Insulin Aspart [Novolog Flexpen] See Protocol SC ACHS 11/21/15 Insulin Glargine [Lantus Solostar] 12 unit SC DAILY 11/21/15 Metformin HCl 500 mg PO BID 11/21/15 Linaclotide [Linzess] 145 mcg PO DAILY 11/14/16 Pantoprazole Sodium 40 mg PO BEDTIME #30 tab 11/14/16 Pantoprazole Tablet [Protonix] 40 mg PO DAILY 11/14/16 Azithromycin Tab [Zithromax Tab] 250 mg PO QDAC #6 tab 11/07/18 Ondansetron [Zofran Odt] 4 mg PO Q4HR PRN #14 tab 11/07/18 Sucralfate Suspension [Carafate Suspension] 10 ml PO AC #500 ml 11/07/18 Azithromycin Tab [Zithromax Tab] 250 mg PO QD #4 tab 12/06/18 Benzonatate Perles [Tessalon Perles] 100 mg PO Q6HRS PRN #20 cap 12/06/18 Review of Systems - Review of Systems Constitutional: States: fever EENTM: States: see HPI Respiratory: States: see HPI Cardiology: States: no symptoms reported Gastrointestinal/Abdominal: States: no symptoms reported Genitourinary: States: no symptoms reported Musculoskeletal: States: no symptoms reported Skin: States: no symptoms reported Neurological: States: no symptoms reported Endocrine: States: no symptoms reported Hematologic/Lymphatic: States: no symptoms reported Past Medical History (General) - Patient Medical History Hx Seizures: No Hx Stroke: Yes - 6-7 years ago Hx Dementia: No Hx Asthma: No Hx of COPD: No Hx Cardiac Disorders: No Hx Congestive Heart Failure: No Hx Pacemaker: No Hx Hypertension: Yes Hx Thyroid Disease: No Hx Diabetes: Yes Hx Gastroesophageal Reflux: Yes Hx Renal Disease: No Hx Cancer: No Hx of HIV: No Hx Hepatitis C: No Hx MRSA: No Surgical History: Hysterectomy - Vaccination History Hx Tetanus, Diphtheria Vaccination: No Hx Influenza Vaccination: No Hx Pneumococcal Vaccination: No - Social History Hx Tobacco Use: Yes Hx Chewing Tobacco Use: No Hx Alcohol Use: No Hx Substance Use: No Hx Substance Use Treatment: No Hx Depression: No Hx Physical Abuse: No Hx Emotional Abuse: No Hx Suspected Abuse: No - Female History Patient is a Female of Child Bearing Age (10 -59 yrs old): No Patient : No - Triage Comment ED Triage Comment: saw today and tested for flu. Given antibiotic, unsure of name Family Medical History - Family History Mother Family History: Unknown Living Status: Age at (years of age): 71 Cause of : Lung cancer/smoker Hx Family Hypertension: Yes - several family members Hx Family Stroke: Yes - multiple family members Hx Cardiac Disease: Yes - multiple family members Hx Family Cancer: Yes - colon-brother,ovary sister Physical Exam - Physical Exam General Appearance: Alert Eye Exam: bilateral normal Ears, Nose, Throat: normal ENT inspection Neck: non-tender, full range of motion, supple Respiratory: wheezing - scattered wheezing in all lung lantigua, L>R Cardiovascular/Chest: regular rate, rhythm, no edema Gastrointestinal/Abdominal: normal bowel sounds, non tender, soft Skin Exam: normal color Lymphatic: no adenopathy Progress - Progress Progress: 12/06/18 03:48 Laboratory Tests 12/06/18 12/06/18 12/06/18 02:28 02:45 02:45 WBC 20.7 H* RBC 5.11 Hgb 15.0 Hct 44.6 MCV 87.3 MCH 29.3 MCHC 33.5 RDW 13.8 Plt Count 355 MPV 7.5 Absolute Neuts (auto) 14.80 H Absolute Lymphs (auto) 4.00 H Absolute Monos (auto) 1.60 H Absolute Eos (auto) 0.20 Absolute Basos (auto) 0.10 Neutrophils % Not Reportable Neutrophils % (Manual) 72.0 Lymphocytes % Not Reportable Lymphocytes % (Manual) 21.0 Monocytes % Not Reportable Monocytes % (Manual) 4.0 Eosinophils % Not Reportable Basophils % Not Reportable Band Neutrophils 2.0 Eosinophils 1.0 Platelet Estimate Normal Normal RBC Morphology 1+aniso RBC Morphology 1+aniso Anisocytosis RBC Morph Comment Plts estefanía adequate Sodium 135 Potassium 3.4 L Chloride 98 L Carbon Dioxide 27 Anion Gap 13.4 BUN 19 H Creatinine 1.04 BUN/Creatinine Ratio 18.3 Random Glucose 145 H Serum Osmolality 274.9 L Calcium 8.8 Urine Color Urine Appearance Urine pH Ur Specific [place] Urine Protein Urine Glucose (UA) Urine Ketones Urine Blood Urine Nitrite Urine Bilirubin Urine Urobilinogen Ur Leukocyte Esterase Urine RBC Urine WBC Ur Epithelial Cells Urine Bacteria Group A Strep Rapid Negative 12/06/18 12/06/18 02:45 02:51 WBC RBC Hgb Hct MCV MCH MCHC RDW Plt Count MPV Absolute Neuts (auto) Absolute Lymphs (auto) Absolute Monos (auto) Absolute Eos (auto) Absolute Basos (auto) Neutrophils % Neutrophils % (Manual) 72.0 Lymphocytes % Lymphocytes % (Manual) 21.0 Monocytes % Monocytes % (Manual) 4.0 Eosinophils % Basophils % Band Neutrophils 2.0 Eosinophils 1.0 Platelet Estimate Normal RBC Morphology RBC Morphology Anisocytosis 1+ RBC Morph Comment Plts estefanía adequate Sodium Potassium Chloride Carbon Dioxide Anion Gap BUN Creatinine BUN/Creatinine Ratio Random Glucose Serum Osmolality Calcium Urine Color Yellow Urine Appearance Clear Urine pH 5.0 Ur Specific [place] 1.025 Urine Protein Negative Urine Glucose (UA) Negative Urine Ketones Negative Urine Blood Small H Urine Nitrite Negative Urine Bilirubin Negative Urine Urobilinogen 0.2 Ur Leukocyte Esterase Negative Urine RBC 3-5 H Urine WBC 1-3 Ur Epithelial Cells 0 Urine Bacteria 0 Group A Strep Rapid CXR unremarkable. Patient was given Toradol 30 mg IM x one for the ear pain azithromycin due to the wheezing, tobacco use, increasing sputum, fever, and overall higher risk for pneumonia. Patient has a follow up appointment with her pcp tomorrow. Tessalon 200 mg po x one given in the E.D. RX for Tessalon and azithromycin given. E.R. warnings given. Care instructions given. Questions were elicited and answered. The patient voiced understanding and agreement with the plan. Departure - Departure Clinical Impression: Upper respiratory infection, Fever, Cough Disposition: Discharge to Home or Self Care Condition: Good Departure Forms: ED Discharge - Pt. Copy, Patient Portal Self Enrollment Instructions: DI for Ear Pain-Adult, Viral Upper Respiratory Infection, Adult (DC) Diet: diabetic diet Activity: increase activity as tolerated Referrals: Naldo Cervantes MD [Primary Care Provider] - 1-2 Weeks Prescriptions: Benzonatate Perles [Tessalon Perles] 100 mg PO Q6HRS PRN #20 cap PRN Reason: Cough Azithromycin Tab [Zithromax Tab] 250 mg PO QD #4 tab Home Medications: Ambulatory Orders Clonazepam 0.5 mg PO BEDTIME PRN 11/21/15 HYDROcodone 5MG/APAP 325MG [[place] 5/325] 1 - 2 tab PO Q4H PRN 11/21/15 Insulin Aspart [Novolog Flexpen] See Protocol SC ACHS 11/21/15 Insulin Glargine [Lantus Solostar] 12 unit SC DAILY 11/21/15 Metformin HCl 500 mg PO BID 11/21/15 Linaclotide [Linzess] 145 mcg PO DAILY 11/14/16 Pantoprazole Sodium 40 mg PO BEDTIME #30 tab 11/14/16 Pantoprazole Tablet [Protonix] 40 mg PO DAILY 11/14/16 Azithromycin Tab [Zithromax Tab] 250 mg PO QDAC #6 tab 11/07/18 Ondansetron [Zofran Odt] 4 mg PO Q4HR PRN #14 tab 11/07/18 Sucralfate Suspension [Carafate Suspension] 10 ml PO AC #500 ml 11/07/18 Azithromycin Tab [Zithromax Tab] 250 mg PO QD #4 tab 12/06/18 Benzonatate Perles [Tessalon Perles] 100 mg PO Q6HRS PRN #20 cap 12/06/18 Additional Instructions: Follow up with your regular doctor today as scheduled. Drink more fluids.
--- NOTE | 2018-12-06 02:52 | RAD ---
CLINICAL HISTORY: cough and fever COMPARISON: None. TECHNIQUE: XR CHEST 2 VIEWS 12/06/2018 2:27 AM [employer]ATOR FINDINGS: Cardiac silhouette is normal in size. Lungs are clear without consolidation, atelectasis, mass or edema. There is no pleural effusion. There is no pneumothorax. There are no acute osseous findings. IMPRESSION: Clear lungs. Electronically signed by: Branden Arango MD 12/06/2018 2:49 AM [employer]PERATIONS SUPPORT COORDINATOR
[2018-12-06] MEDS ORDERED: BENZONATATE PERLES 100 MG CAP PO ONE (02:57)
[2018-12-06] MEDS ORDERED: KETOROLAC TROMETHAMINE INJ 30 MG/ML VIAL IM ONE (03:23)
[2018-12-06] MEDS ORDERED: AZITHROMYCIN 250 MG TAB PO ONE (03:28)
[2018-12-06 04:03] VITALS: BP 140/81; TEMP 100.1; O2SAT 96
== END 2018-12-06 04:14 | disposition home or self-care (01) ==
LOC: ER 01:52
DX: J06.9 Acute upper respiratory infection, unspecified (principal); H92.01 Otalgia, right ear; I10 Essential (primary) hypertension; E11.9 Type 2 diabetes mellitus without complications; K21.9 Gastro-esophageal reflux disease without esophagitis; Z86.73 Personal history of transient ischemic attack (TIA), and cerebral infarction without residual deficits; Z79.899 Other long term (current) drug therapy; Z87.891 Personal history of nicotine dependence
CPT/HCPCS: 71046; 80048; 81001; 85025; 87070; 87502; 87880; J1885; Q0144

== ENCOUNTER → 2018-12-12 | Outpatient (CLI) | payer MEDICARE, MEDICAID | LOC: GMAM 17:45 | PROVIDERS: ATTEND Family Medicine | DX: R51 Headache (principal) ==

== ENCOUNTER → 2018-12-14 | Outpatient (CLI) | payer MEDICARE, MEDICAID ==
--- NOTE | 2018-12-14 14:05 | CT ---
EXAM DESCRIPTION: Head CLINICAL HISTORY: HEADACHE COMPARISON: Previous CT head March 03, 2010, previous MRI of the brain January 05, 2014 TECHNIQUE: Noncontrast head CT was performed with routine protocol. FINDINGS: Normal hernandez-white matter differentiation. Ventricles and sulci are normal for age. No high density hemorrhage, focal edema or shift of the midline. No sulcal effacement. Normal orbital contents. Basilar cisterns appear clear. Intact calvarium with no fracture or lytic lesion. Normal aeration of tympanic cavities and mastoid air cells. No fluid levels in the paranasal sinuses. Skull base appears intact. Symmetrical internal auditory canals. Coronal and sagittal reformatted images confirm the findings. IMPRESSION: No acute intracranial pathologic process. This exam was performed according to our departmental dose-optimization program, which includes automated exposure control, adjustment of the mA and/or kV according to patient size and/or use of iterative reconstruction technique. Total DLP equals 644.98 mGycm. Electronically signed by: Ceferino Haines MD 12/14/2018 2:02 PM [facility]
--- NOTE | 2018-12-14 14:14 | CT ---
EXAM DESCRIPTION: Sinuses CLINICAL HISTORY: HEADACHE COMPARISON: None Available. TECHNIQUE: CT of the paranasal sinuses is performed with direct axial imaging technique. Multiplanar reformatted images are reviewed post along with source images. FINDINGS: Lower portions of the brain appear normal. Normal orbital contents. The globes appear symmetrical. Axial images show clear paranasal sinuses with no fluid levels or mucosal thickening. At the level of the mid maxillary sinuses, there is leftward nasal septal deviation 4 mm. Intact lamina papyracea bilaterally. Normal aeration of tympanic cavities and visualized mastoid air cells. Symmetrical internal auditory canals. Coronal reformatted images show normal middle ear ossicles. No erosion of the scutum on either side. Normal osseous appearance of the inner ear structures bilaterally. Left sphenoid sinus bony septum extends to the carotid floor. No carotid bony dehiscence. No pneumatization of the anterior clinoids. No Onodi cell pneumatization. In the plane of the ostiomeatal units, normal aeration of maxillary sinus ostia is seen with 1 mm mucosal thickening slightly narrowing the right. Normal aeration of hiatus semilunaris and middle meatus regions. At the level of the anterior maxillary sinuses, there is leftward nasal septal deviation 4 mm. Symmetrical right and left sides of the cribriform plate. The right olfactory fossa measures 3.4 mm in depth and the left measures 2.7 mm, Keros type II. No evidence of old medial or inferior orbital blowout fracture. No anterior ethmoidal arterial exposure. Sagittal images show sellar pneumatization pattern of the sphenoid sinus. The upper clivus/posterior sphenoid sinus wall at its thinnest point measures 0.7 mm. No bony dehiscence of the sella. Bony septum in the lateral left maxillary sinus incidentally noted. IMPRESSION: Clear paranasal sinuses. This exam was performed according to our departmental dose-optimization program, which includes automated exposure control, adjustment of the mA and/or kV according to patient size and/or use of iterative reconstruction technique. Electronically signed by: Ceferino Haines MD 12/14/2018 2:11 PM [employer]
== END ==
LOC: CT 13:30
PROVIDERS: ATTEND Family Medicine
DX: R51 Headache (principal)

== ENCOUNTER → 2019-02-27 | Outpatient (CLI) | payer MEDICARE, MEDICAID | LOC: GMAM 17:17 | PROVIDERS: ATTEND Family Medicine | DX: R53.83 Other fatigue (principal) ==

== ENCOUNTER → 2019-03-24 | Outpatient (CLI) | payer MEDICARE, MEDICAID ==
--- NOTE | 2019-03-24 21:46 | CT ---
Procedure: CT LUNG SCREENING Exam Date: 03/24/2019. Ordering Provider: Tim Hernandez Clinical Indication: LOW DOSE LUNG SCREEN current cigarette smoker. 38 pack years. This patient meets eligibility criteria for low-dose CT lung cancer screening. Comparison: Chest x-ray November 2018. Technique: Using a multislice scanner, sequential helical axial imaging was obtained in the thorax, 2.5 mm thickness, 2.5 mm separation, from the level of the thoracic inlet through the lung bases without IV contrast. A low dose protocol was utilized for BMI less than 30: BMI: 24.9. CTDI: 1.76 mGy. 120. kVp. 45 mA. DLP 60.97 mGy centimeters. 2D sagittal and coronal reconstructed images, 6.0 mm thickness, were obtained. This exam was performed according to our departmental dose optimization program which includes use of automated exposure control, adjustment of the mA and/or kV according to patient size and/or use of iterative reconstruction technique. Nodule measurements under 10 mm are given as mean value of 3 axes diameters. FINDINGS: Lungs and large airways: Small parenchymal blebs mostly in the upper lung lantigua bilaterally. 3 mm subpleural nodule posterior left lower lobe on axial series 2, image 79. No mass or focal infiltrate. Pleural parenchymal scarring in the inferior lingula. Pleura and space: Bilateral scattered foci of focal thickening. No effusion or pneumothorax bilaterally.. Mediastinum and chanelle: evaluation limited by low dose technique and lack of IV contrast. Small nodes not enlarged and no large soft tissue mass; no fluid or air. Heart and great vessels: Minimal atherosclerotic calcification in the aorta. Chest wall, lower neck, axillae: Evaluation also limited by same factors as described above. Well-defined nodule in the right thyroid lobe with calcification. Lymph nodes are not enlarged. Upper abdomen: Included peritoneal space is unremarkable. Included organs with normal density. Osseous structures: Evaluation limited by low dose MIP technique. Minimal spondylosis. Minimal arthrosis. No lytic or blastic lesions. IMPRESSION: 1. Small 3 mm subpleural nodule posterior left lower lobe. No larger nodules or masses. No focal infiltrates. Minimal emphysematous changes.. [facility] Best Practice recommendations: Please see below for Lung RADS category and FOLLOW-UP.* *Lung RADS category CATEGORY 2S- Nodules with a very low likelihood (less than 1%) of becoming a clinically active cancer due to size or lack of growth. Nodules: Solid or part solid nodule(s) less than 6mm, new solid nodule less than 4mm. Ground glass nodule(s) less than 20mm or unchanged or slow growing ground glass nodule 20mm or greater. Cat 3 or 4 nodule unchanged for 3 or more months. FOLLOW-UP: Continue annual screening with a Low Dose Chest CT in 12 months for re-evaluation. 2. Lung RADS Modifier S - Clinically Significant or Potentially Clinically Significant Findings (non lung cancer). Incidental thyroid nodule suspected, but size is indeterminate. If incidental thyroid nodule < 1.5 cm, no follow-up imaging is recommended; if >= 1.5 cm, recommend thyroid US. Since nodule contains calcification and lung screening resolution is decreased in the thyroid gland, thyroid ultrasound is recommended. Reference: J Am [employer]. 2015 Nov;12(2): 143-50 Electronically signed by: Vito Dickey MD 03/24/2019 9:44 PM CDT
== END ==
LOC: CT 15:26
PROVIDERS: ATTEND Internal Medicine
DX: Z87.891 Personal history of nicotine dependence (principal); R91.1 Solitary pulmonary nodule; J44.9 Chronic obstructive pulmonary disease, unspecified; J30.9 Allergic rhinitis, unspecified

== ENCOUNTER → 2019-04-21 | Outpatient (CLI) | payer MEDICARE, MEDICAID ==
--- NOTE | 2019-04-21 11:52 | US ---
EXAM DESCRIPTION: Venous,Lower Extremity RT: ULTRASOUND. CLINICAL HISTORY: PAIN IN RIGHT LOWER LEG COMPARISON: None Available. TECHNIQUE: Dsouza-scale and doppler sonographic evaluation of the deep venous system of the right lower extremity. FINDINGS: Doppler evaluation shows normal color flow and normal phasicity and augmentation of the right common femoral vein, femoral vein, popliteal vein, greater saphenous vein, peroneal, and posterior tibial vein. The right lower extremity deep veins were completely compressible; normal occlusion with transducer pressure. Dsouza-scale survey showed no echogenic thrombus within these veins. At the location of palpable mass medial distal in the, no dominant soft tissue mass, free fluid, cyst, or venous thrombus. IMPRESSION: 1. Duplex ultrasound evaluation of the right lower extremity deep venous system showing no evidence of thrombosis. 2. No cyst or free fluid or mass is palpable. Electronically signed by: Vito Dickey MD 04/21/2019 11:46 AM CDT
== END ==
LOC: US 10:48
PROVIDERS: ATTEND Physician Assistant
DX: M79.661 Pain in right lower leg (principal)

== ENCOUNTER → 2019-05-16 | Outpatient (CLI) | payer MEDICARE, MEDICAID ==
--- NOTE | 2019-05-16 15:16 | CT ---
EXAM DESCRIPTION: Abdomen/Pelvis w/wo Contrast: Computed Tomography. CLINICAL HISTORY: HEMATURIA. Frequent UTIs. COMPARISON: Abdominal pelvic CT scan 06/11/2017. TECHNIQUE: Spiral-axial scans at 5 x 5 mm intervals through the abdomen and pelvis before and after Optiray 320 nonionic IV contrast. No oral contrast. Coronal and sagittal 2.0 mm reconstructions. 5 mm Delayed helical-axial scans, liver through the pubic symphysis. No adverse reactions. Total Exam DLP 1004.73 mGy - cm. This exam was performed according to our departmental CT dose-optimization program which includes automated exposure control, adjustment of the mA and/or kV according to patient size and/or use of iterative reconstruction technique; to reduce radiation dose to as low as reasonably achievable (ALARA). FINDINGS: Lung bases and pleura: 3 mm subpleural nodule left lower lobe stable since the lung screening CT scan in February 2019. Liver, Stomach, Spleen, Adrenal Glands: Long axis right lobe craniocaudal 17.5 cm. Overall fatty density with no focal lesions. Possible small hiatal hernia. Other solid organs are negative. Pancreas, Gallbladder, Ducts: Gallbladder visualized. Normal caliber of the duct. Pancreas unremarkable. Kidneys and Ureters: Negative. No stones, no hydronephrosis, no perirenal fluid. Normal caliber of the ureters. No periureteral edema. Mesentery: Unremarkable. Aorta: Minimal atherosclerotic changes. Small Bowel: Normal caliber with minimal gas and fluid. Terminal Ileum/Cecum: Normal caliber. Appendix visualized. Normal density of the surrounding fat. Colon: Nondistended with minimal fecal material. Small diverticula in the sigmoid with no complications. Pelvic Organs: No radiodense stones in the urinary bladder. No free fluid in the cul-de-sac. Vaginal cuff unremarkable. Spine and Bony Pelvis: Minimal hypertrophic changes in the bilateral superior lateral acetabular facets with partial over coverage of the femoral heads. Minimal spondylosis lower lumbar spine with interbody fusion L4-L5. Abdominal Wall/Back Soft Tissues: Bilateral small fatty inguinal hernias not containing bowel. Umbilical diastases not containing bowel. IMPRESSION: 1. No CT abnormality seen in the ureters, kidneys, or urinary bladder. 2. Fatty liver and mild enlargement. Possible small hiatal hernia. 3. Minimal constipation of the colon with minimal diverticulosis sigmoid colon with no complications. Electronically signed by: Vito Dickey MD 05/16/2019 3:14 PM CDT
== END ==
LOC: CT 10:51
PROVIDERS: ATTEND Urology
DX: N30.21 Other chronic cystitis with hematuria (principal); K76.0 Fatty (change of) liver, not elsewhere classified; K59.00 Constipation, unspecified; K57.30 Diverticulosis of large intestine without perforation or abscess without bleeding

== ENCOUNTER → 2019-05-17 | Outpatient (CLI) | payer MEDICARE, MEDICAID ==
--- NOTE | 2019-05-17 12:08 | US ---
EXAM DESCRIPTION: Gall Bladder: ULTRASOUND. CLINICAL HISTORY: RUQ ABD PN COMPARISON: CT abdomen and pelvis 05/16/2019. TECHNIQUE: Transabdominal scanning: Dsouza-scale and Doppler modes. FINDINGS: Gallbladder: normal size, shape, echogenicity; no intraluminal stones or sludge. No fluid around the gallbladder. No wall thickening. 2.0 mm. Non-tender with transducer pressure. Common bile duct: caliber 5.4 mm within normal limits. Liver: Increased echogenicity; contour liver capsule smooth where seen. No fluid around the liver. Intrahepatic biliary ducts normal caliber. Doppler hepatopedal flow portal vein.. Long axis right lobe cm Pancreas: normal size and echogenicity. Duct not seen. Aorta: Proximal aorta transverse 1.6 cm. Right kidney: 9.6 cm long axis. Normal cortical thickness and echogenicity. No hydronephrosis, no echogenic stones, no perinephric fluid.. IMPRESSION: 1. Fatty liver not enlarged. Normal caliber ducts and portal vein with normal hepatopedal flow. Smooth capsule with no ascites. 2. Right kidney, gallbladder, common bile duct, pancreas, and proximal aorta unremarkable. Electronically signed by: Vito Dickey MD 05/17/2019 12:06 PM CDT
== END ==
LOC: US 09:00
PROVIDERS: ATTEND Family Medicine
DX: K76.0 Fatty (change of) liver, not elsewhere classified (principal)

== ENCOUNTER → 2019-05-22 | Outpatient (CLI) | payer MEDICARE, MEDICAID ==
--- NOTE | 2019-05-22 17:36 | US ---
EXAM DESCRIPTION: Breast,Right (accession [id number]), Diagnostic Mammo,Bilateral (accession [id number]): Ultrasound CLINICAL HISTORY: 68 yearsFemaleRIGHT BREAST/AXILLARY LUMP AND SWELLING . No personal or family history of breast cancer. Sister with ovarian cancer. Childbirth. Postmenopausal. HRT 5 or more years ago. Prior benign cyst aspiration and biopsy right breast. Lifetime risk of developing breast cancer (Tyrer-Cuzick model)(%): 4.7 COMPARISON: None. TECHNIQUE: Bilateral CC, MLO, exaggerated right CC and LM projection full-field images, digital mammographic tomosynthesis technique. Bilateral 2-D digital full-field MLO images. CAD not utilized. . Transcutaneous scanning of the right breast utilizing hernandez-scale and Doppler modes. Scanning performed by the programming development project manager and Dr. Dickey. FINDINGS: The breast parenchymal density pattern is: Scattered areas of fibroglandular density. No skin thickening or nipple retraction . Marker placed over palpable region right axilla. Well-circumscribed nodular densities in the anterior middle third of the right breast. No focal, stellate mass or density, focal asymmetry , and no suspicious microcalcifications bilaterally. Ultrasound: Scanning of the right axilla and the upper outer quadrant of the right breast. Multiple hypoechoic masses are noted in the axilla which are well-circumscribed with eccentric echogenic regions which demonstrate vascularity by color Doppler. These are consistent with lymph nodes. This nodes measure 1 x 1 cm, 6 x 5 mm, and 6 x 4 mm. At the 12:00 position, 6 cm from the nipple, is a circumscribed hypoechoic solid nodule measuring 6.4 x 5.2 x 4.7 mm. Wider than tall orientation with acoustic shadowing. This could represent a reactive lymph node or fibroadenoma. No distinct cyst. No parenchymal edema or large calcifications. IMPRESSION: BI-RADS CATEGORY: 3 - PROBABLY BENIGN. Management: Short interval (6-month) follow-up or continued surveillance. The FINDINGS and the FOLLOW-UP plan were reviewed in person with the patient after the examination. Written communication explaining the IMPRESSION and FOLLOW-UP will be mailed to the patient and referring care provider. Electronically signed by: Vito Dickey MD 05/22/2019 5:35 PM CDT
== END ==
LOC: US 13:00
PROVIDERS: ATTEND Family Medicine
DX: N63.11 Unspecified lump in the right breast, upper outer quadrant (principal)

== ENCOUNTER 2019-06-29 | Emergency (ER) | payer MEDICARE, MEDICAID ==
--- NOTE | 2019-06-29 14:08 | ED.PDOC ---
History of Present Illness - General Chief Complaint: General Stated Complaint: L jaw swellign/pain Time Seen by Provider: 06/29/19 13:54 - History of Present Illness Initial Comments: The patient is a 68F with PMH significant for DM, cataracts, chronic headaches who presents to the ED complaining of facial pain and swelling. She states that she woke this morning with left sided neck swelling, minimal pain, no redness or fevers. She states that she placed ice to the area and the swelling improved. She went to eat lunch, however, and noticed a dramatic increase in the amount of swelling. Currently she states that it is improved but not resolved. She has minimal pain, no fevers. No other complaints at this time. Allergies/Adverse Reactions: Allergies Metformin and Related Allergy (Verified 06/29/19 13:55) Sulfamethoxazole w/Trimethoprim [From Bactrim] Allergy (Verified 06/29/19 13:55) Lidocaine Adverse Reaction (Verified 06/29/19 13:55) Home Medications: Ambulatory Orders Clonazepam 0.5 mg PO BEDTIME PRN 11/21/15 HYDROcodone 5MG/APAP 325MG [[place] 5/325] 1 - 2 tab PO Q4H PRN 11/21/15 Insulin Aspart [Novolog Flexpen] See Protocol SC ACHS 11/21/15 Insulin Glargine [Lantus Solostar] 12 unit SC DAILY 11/21/15 Metformin HCl [Metformin Hydrochloride] 500 mg PO BID 11/21/15 Linaclotide [Linzess] 145 mcg PO DAILY 11/14/16 Pantoprazole Sodium 40 mg PO BEDTIME #30 tab 11/14/16 Pantoprazole Tablet [Protonix] 40 mg PO DAILY 11/14/16 Azithromycin Tab [Zithromax Tab] 250 mg PO QDAC #6 tab 11/07/18 Ondansetron [Zofran Odt] 4 mg PO Q4HR PRN #14 tab 11/07/18 Sucralfate Suspension [Carafate Suspension] 10 ml PO AC #500 ml 11/07/18 Azithromycin Tab [Zithromax Tab] 250 mg PO QD #4 tab 12/06/18 Benzonatate Perles [Tessalon Perles] 100 mg PO Q6HRS PRN #20 cap 12/06/18 Review of Systems - Review of Systems Constitutional: Denies: chills, fever EENTM: States: other - left sided facial swelling. Denies: tearing, ear pain, ear discharge, nose congestion, throat pain, throat swelling, mouth pain Respiratory: Denies: cough, short of breath Cardiology: States: no symptoms reported Gastrointestinal/Abdominal: States: no symptoms reported Genitourinary: States: no symptoms reported Musculoskeletal: States: no symptoms reported Skin: States: lumps. Denies: change in color, rash Neurological: States: no symptoms reported Endocrine: States: no symptoms reported Hematologic/Lymphatic: States: no symptoms reported All other Systems: Reviewed and Negative Past Medical History (General) - Patient Medical History Hx Seizures: No Hx Stroke: No Hx Dementia: No Hx Asthma: No Hx of COPD: No Hx Cardiac Disorders: No Hx Congestive Heart Failure: No Hx Pacemaker: No Hx Hypertension: No Hx Thyroid Disease: No Hx Diabetes: Yes Hx Gastroesophageal Reflux: Yes Hx Renal Disease: No Hx Cancer: No Hx of HIV: No Hx Hepatitis C: No Hx MRSA: No Surgical History: Hysterectomy, other - Vaccination History Hx Tetanus, Diphtheria Vaccination: Yes Hx Influenza Vaccination: No Hx Pneumococcal Vaccination: Yes - Social History Hx Tobacco Use: Yes Hx Chewing Tobacco Use: No Hx Alcohol Use: No Hx Substance Use: No Hx Substance Use Treatment: No Hx Depression: No Hx Physical Abuse: No Hx Emotional Abuse: No Hx Suspected Abuse: No - Female History Patient is a Female of Child Bearing Age (10 -59 yrs old): No Patient : No Family Medical History - Family History Mother Family History: Unknown Living Status: Age at (years of age): 71 Cause of : Lung cancer/smoker Hx Family Hypertension: Yes - several family members Hx Family Stroke: Yes - multiple family members Hx Cardiac Disease: Yes - multiple family members Hx Family Cancer: Yes - colon-brother,ovary sister Physical Exam - Physical Exam General Appearance: Alert, Comfortable, No apparent distress, Well Developed, Well Nourished Eye Exam: bilateral normal Ears, Nose, Throat: normal ENT inspection, normal pharynx, other - There is mild parotid swelling on the left. There is no erythema and minimal tenderness. There is no purulence expressed from parotid duct. She is edentulous. Neck: non-tender, full range of motion, supple Respiratory: lungs clear, no respiratory distress Cardiovascular/Chest: regular rate, rhythm Neurologic: no motor/sensory deficits, alert, oriented x 3 Skin Exam: normal color Lymphatic: no adenopathy Progress - Progress Progress: MDM Patient presents to the ED with left parotid swelling, improved with ice and worse with eating. Not distressed on exam, there is no erythema or purulence. There is no purulence expressed from parotid duct. There is no lymphadenopathy. Suspect parotid sialolithiasis. Will continue outpatient management with sialagogue and follow up with PCP. Referral information for ENT provided. Home care instructions and return indications reviewed. Departure - Departure Clinical Impression: Parotid sialolithiasis Time of Disposition: 14:06 Disposition: Discharge to Home or Self Care Condition: Good Departure Forms: ED Discharge - Pt. Copy, Patient Portal Self Enrollment Diet: resume usual diet Activity: increase activity as tolerated Referrals: Naldo Cervantes MD [Primary Care Provider] - 1-2 Weeks JAROCHO PETTY MD [Consulting Staff] - 1 Week Home Medications: Ambulatory Orders Clonazepam 0.5 mg PO BEDTIME PRN 11/21/15 HYDROcodone 5MG/APAP 325MG [[place] 5/325] 1 - 2 tab PO Q4H PRN 11/21/15 Insulin Aspart [Novolog Flexpen] See Protocol SC ACHS 11/21/15 Insulin Glargine [Lantus Solostar] 12 unit SC DAILY 11/21/15 Metformin HCl [Metformin Hydrochloride] 500 mg PO BID 11/21/15 Linaclotide [Linzess] 145 mcg PO DAILY 11/14/16 Pantoprazole Sodium 40 mg PO BEDTIME #30 tab 11/14/16 Pantoprazole Tablet [Protonix] 40 mg PO DAILY 11/14/16 Azithromycin Tab [Zithromax Tab] 250 mg PO QDAC #6 tab 11/07/18 Ondansetron [Zofran Odt] 4 mg PO Q4HR PRN #14 tab 11/07/18 Sucralfate Suspension [Carafate Suspension] 10 ml PO AC #500 ml 11/07/18 Azithromycin Tab [Zithromax Tab] 250 mg PO QD #4 tab 12/06/18 Benzonatate Perles [Tessalon Perles] 100 mg PO Q6HRS PRN #20 cap 12/06/18 Additional Instructions: Resume usual diet. You may increase saliva production with the use of hard sour candies. Tylenol and motrin as needed for pain. Follow up with your primary care provider or ENT. Comments: Alex Foster MD Emergency Medicine Physician Number [id number]
== END 2019-06-29 14:20 | disposition home or self-care (01) ==

== ENCOUNTER → 2019-09-19 | Outpatient (CLI) | payer MEDICARE, MEDICAID | LOC: GMAM 16:35 | PROVIDERS: ATTEND Family Medicine | DX: R53.82 Chronic fatigue, unspecified (principal); M06.9 Rheumatoid arthritis, unspecified; I10 Essential (primary) hypertension; Z79.899 Other long term (current) drug therapy ==

== ENCOUNTER 2019-10-31 16:51 | Emergency (ER) | payer MEDICARE, MEDICAID ==
--- NOTE | 2019-10-31 18:23 | RAD ---
EXAM DESCRIPTION: Chest,2 Views CLINICAL HISTORY: 68 years Female chest pain COMPARISON: 12/06/2018 FINDINGS: The cardiomediastinal silhouette appears unremarkable. No consolidating infiltrates or pleural effusions. No pneumothorax. Linear atelectasis in the right middle lobe IMPRESSION: No acute abnormality is identified. Electronically signed by: Alicia Roper MD 10/31/2019 6:22 PM PIPE LINE INSPECTOR
[2019-10-31] MEDS ORDERED: KETOROLAC TROMETHAMINE INJ 30 MG/ML VIAL IV ONE (18:50)
[2019-10-31] MEDS ORDERED: OSELTAMIVIR 75 MG CAP ONE (18:54)
[2019-10-31] MEDS ORDERED: OSELTAMIVIR 75 MG CAP PO ONE ×2 (18:55→19:07)
--- NOTE | 2019-10-31 19:13 | ED.PDOC ---
History of Present Illness - General Chief Complaint: Fever Stated Complaint: cough, fever Time Seen by Provider: 10/31/19 17:27 Source: patient, family Exam Limitations: no limitations - History of Present Illness Initial Comments: 2D FEVER, COUGH. Severity: moderate Improving Factors: nothing Worsening Factors: nothing Associated Symptoms: cough, fever/chills, other - MYALGIAS, FATIGUE Allergies/Adverse Reactions: Allergies Sulfamethoxazole w/Trimethoprim [From Bactrim] Allergy (Verified 06/29/19 13:55) Lidocaine Adverse Reaction (Verified 06/29/19 13:55) Metformin and Related Adverse Reaction (Verified 06/30/19 11:53) Nausea Home Medications: Ambulatory Orders Clonazepam 0.5 mg PO BEDTIME PRN 11/21/15 HYDROcodone 5MG/APAP 325MG [[place] 5/325] 1 - 2 tab PO Q4H PRN 11/21/15 Insulin Aspart [Novolog Flexpen] See Protocol SC ACHS 11/21/15 Insulin Glargine [Lantus Solostar] 12 unit SC DAILY 11/21/15 Metformin HCl [Metformin Hydrochloride] 500 mg PO BID 11/21/15 Linaclotide [Linzess] 145 mcg PO DAILY 11/14/16 Pantoprazole Sodium 40 mg PO BEDTIME #30 tab 11/14/16 Pantoprazole Tablet [Protonix] 40 mg PO DAILY 11/14/16 Azithromycin Tab [Zithromax Tab] 250 mg PO QDAC #6 tab 11/07/18 Ondansetron [Zofran Odt] 4 mg PO Q4HR PRN #14 tab 11/07/18 Sucralfate Suspension [Carafate Suspension] 10 ml PO AC #500 ml 11/07/18 Azithromycin Tab [Zithromax Tab] 250 mg PO QD #4 tab 12/06/18 Benzonatate Perles [Tessalon Perles] 100 mg PO Q6HRS PRN #20 cap 12/06/18 Oseltamivir Capsule [Tamiflu] 75 mg PO BID 5 Days #10 capsule 10/31/19 Review of Systems - Review of Systems Constitutional: States: chills, fever EENTM: Denies: ear pain, throat pain Respiratory: States: cough. Denies: short of breath, wheezing Cardiology: Denies: chest pain, palpitations Gastrointestinal/Abdominal: Denies: abdominal pain, nausea Genitourinary: States: no symptoms reported Musculoskeletal: States: other - GENERAL MYALGIAS. Denies: back pain, neck pain Skin: States: no symptoms reported Neurological: States: no symptoms reported Endocrine: States: no symptoms reported Hematologic/Lymphatic: States: no symptoms reported All other Systems: Reviewed and Negative Past Medical History (General) - Patient Medical History Hx Seizures: No Hx Stroke: No Hx Dementia: No Hx Asthma: No Hx of COPD: No Hx Cardiac Disorders: No Hx Congestive Heart Failure: No Hx Pacemaker: No Hx Hypertension: No Hx Thyroid Disease: No Hx Diabetes: Yes Hx Gastroesophageal Reflux: Yes Hx Renal Disease: No Hx Cancer: No Hx of HIV: No Hx Hepatitis C: No Hx MRSA: No Surgical History: Hysterectomy, other - Vaccination History Hx Tetanus, Diphtheria Vaccination: Yes Hx Influenza Vaccination: Yes - 2019 Hx Pneumococcal Vaccination: Yes - 2019 - Social History Hx Tobacco Use: Yes Hx Chewing Tobacco Use: No Hx Alcohol Use: No Hx Substance Use: No Hx Substance Use Treatment: No Hx Depression: No Hx Physical Abuse: No Hx Emotional Abuse: No Hx Suspected Abuse: No - Female History Patient : No Family Medical History - Family History Mother Family History: Unknown Living Status: Age at (years of age): 71 Cause of : Lung cancer/smoker Hx Family Hypertension: Yes - several family members Hx Family Stroke: Yes - multiple family members Hx Cardiac Disease: Yes - multiple family members Hx Family Cancer: Yes - colon-brother,ovary sister Physical Exam - Physical Exam General Appearance: Alert, Other - UNCOMFORTABLE Eye Exam: bilateral normal Ears, Nose, Throat: normal ENT inspection, normal pharynx Neck: non-tender, full range of motion, supple Respiratory: chest non-tender, lungs clear, normal breath sounds, no respiratory distress, no accessory muscle use Cardiovascular/Chest: normal peripheral pulses, regular rate, rhythm, no edema, no JVD, no murmur Peripheral Pulses: radial,right: 2+, radial,left: 2+ Gastrointestinal/Abdominal: normal bowel sounds, non tender, soft Back Exam: no CVA tenderness, no vertebral tenderness Extremity: normal range of motion, non-tender, normal inspection Neurologic: laboratory helper II-XII nml as tested, no motor/sensory deficits, alert, oriented x 3 Skin Exam: normal color, warm/dry Lymphatic: no adenopathy Progress - Results/Orders Results/Orders: POS FOR INFLUENZA B. CXR, CBC, CMP NEG. TACHYPNEA RESOLVED (36 ADMISSION, 26 DISCHARGE. PT ABLE TO SPEAK COMFORTABLY.) TORADOL FOR MYALGIAS. TAMIFLU RX'D. RECOMMENDED SMOKING CESSATION. Departure - Departure Clinical Impression: Influenza B, Tachypnea, Myalgia Disposition: Discharge to Home or Self Care Condition: Good Departure Forms: ED Discharge - Pt. Copy, Patient Portal Self Enrollment Instructions: Flu, Adult (DC) Diet: resume usual diet Activity: increase activity as tolerated Referrals: Naldo Cervantes MD [Primary Care Provider] - 1-2 Weeks Prescriptions: Oseltamivir Capsule [Tamiflu] 75 mg PO BID 5 Days #10 capsule Home Medications: Ambulatory Orders Clonazepam 0.5 mg PO BEDTIME PRN 11/21/15 HYDROcodone 5MG/APAP 325MG [[place] 5/325] 1 - 2 tab PO Q4H PRN 11/21/15 Insulin Aspart [Novolog Flexpen] See Protocol SC ACHS 11/21/15 Insulin Glargine [Lantus Solostar] 12 unit SC DAILY 11/21/15 Metformin HCl [Metformin Hydrochloride] 500 mg PO BID 11/21/15 Linaclotide [Linzess] 145 mcg PO DAILY 11/14/16 Pantoprazole Sodium 40 mg PO BEDTIME #30 tab 11/14/16 Pantoprazole Tablet [Protonix] 40 mg PO DAILY 11/14/16 Azithromycin Tab [Zithromax Tab] 250 mg PO QDAC #6 tab 11/07/18 Ondansetron [Zofran Odt] 4 mg PO Q4HR PRN #14 tab 11/07/18 Sucralfate Suspension [Carafate Suspension] 10 ml PO AC #500 ml 11/07/18 Azithromycin Tab [Zithromax Tab] 250 mg PO QD #4 tab 12/06/18 Benzonatate Perles [Tessalon Perles] 100 mg PO Q6HRS PRN #20 cap 12/06/18 Oseltamivir Capsule [Tamiflu] 75 mg PO BID 5 Days #10 capsule 10/31/19 Additional Instructions: Please try to cut down or quit smoking. Please get plenty of rest and drink fluids.
[2019-10-31 19:40] VITALS: BP 110/47; TEMP 100; O2SAT 96
== END 2019-10-31 19:56 | disposition home or self-care (01) ==
LOC: ER 16:51
DX: J10.1 Influenza due to other identified influenza virus with other respiratory manifestations (principal); R06.82 Tachypnea, not elsewhere classified; M79.10 Myalgia, unspecified site; E11.9 Type 2 diabetes mellitus without complications; K21.9 Gastro-esophageal reflux disease without esophagitis; Z87.891 Personal history of nicotine dependence; Z79.4 Long term (current) use of insulin; Z79.899 Other long term (current) drug therapy; Z88.2 Allergy status to sulfonamides; Z88.8 Allergy status to other drugs, medicaments and biological substances
CPT/HCPCS: 71046; 80053; 85025; 87502; J1885

== ENCOUNTER → 2020-02-21 | Outpatient (CLI) | payer MEDICARE, MEDICAID ==
--- NOTE | 2020-02-22 08:59 | MRI ---
EXAM DESCRIPTION: Lumbar Spine w/o Contrast : Magnetic Resonance Imaging. CLINICAL HISTORY: RADICULOPATHY COMPARISON: Lumbar radiographs February 15. TECHNIQUE: Multiplanar, multiple standard sequences, non contrast MRI, lumbar spine. FINDINGS: L5-S1: The disc is well visualized on axial T2 series 501, image 3. Minimal disc desiccation. Posterior midline focal bulge with hyperintense T2 annular fissure. Mild canal narrowing. Minimal degenerative hypertrophy of the right facet joint and right glenohumeral ligament. Mild left foraminal narrowing. Sacral Tarlov cysts. L4-L5: Interbody fusion device with granulation tissue but no significant encroachment on the spinal canal with posterior decompression also present. Partial resection of the facet joints. Mild right foraminal narrowing with left foramen patent. Posterior soft tissue surgical changes no acute findings. L3-L4: Disc desiccation. Disc space preserved. Left posterolateral disc protrusion measuring 5 x 11 mm, lateral to the exiting left L3 nerve and impinging the lateral aspect of the nerve. Left foraminal stenosis. Degenerative hypertrophy of the facet joints and posterior flavum ligaments (canal elements). No canal stenosis. Borderline mild right foraminal narrowing. L2-L3: Disc desiccation and anterior bulging and endplate ridging. Minimal posterior disc space loss. Tiny posterior midline hyperintense T2 annular fissure. Mild degenerative hypertrophy of the canal elements mostly on the right. Perineural cyst on the right measures bilateral foramina are patent. L1-L2: Disc desiccation with disc space maintained. Minimal anterior bulging. Minimal degenerative hypertrophy of the canal elements. Canal and foramina are patent. T12-L1: Normal signal in the disc with disc space maintained and no bulging. Canal elements are unremarkable. Bilateral foramina and canal are patent. Conus terminates just below the disc space. No significant curvature. Paravertebral soft tissues paraspinal muscle atrophy from L4 down to S1.. Distal cord normal signal and caliber. Normal marrow signal in the remaining vertebral bodies and the posterior elements. Vertebral bodies are not compressed at any level. IMPRESSION: 1. Left posterior lateral herniation at L3-L4 with the protruding segment in the left foramen causing stenosis and impinging the left L3 nerve. No canal stenosis. 2. Prior interbody disc space fusion with no complications. Posterior decompression surgery with no complications seen. 3. Tiny posterior midline L2-3 disc annular fissure which can be a source of back pain. Perineural cyst in the right foramen. Electronically signed by: Vito Dickey MD 02/22/2020 8:57 AM CDT
== END ==
LOC: MRI 13:00
PROVIDERS: ATTEND Family Medicine
DX: M54.16 Radiculopathy, lumbar region (principal); M48.062 Spinal stenosis, lumbar region with neurogenic claudication; M51.26 Other intervertebral disc displacement, lumbar region; M51.36 Other intervertebral disc degeneration, lumbar region; Z98.1 Arthrodesis status; Z98.890 Other specified postprocedural states

== ENCOUNTER → 2020-03-12 | Outpatient (CLI) | payer MEDICARE, MEDICAID ==
--- NOTE | 2020-03-13 08:28 | MRI ---
EXAM DESCRIPTION: Cervical Spine CLINICAL HISTORY: 69 years, Female, OTHER CERVICAL DISC DEGENERATION, UNSP CERVICAL REGION COMPARISON: None TECHNIQUE: Multiplanar multi sequence images of the cervical spine were obtained without gadolinium contrast. FINDINGS: Vertebral body height and alignment are well maintained.There is no bone marrow edema. Alignment of the craniocervical junction is anatomic, and visualized portions of the brainstem and spinal cord are unremarkable. [The paraspinal soft tissues are unremarkable.] Disc desiccation throughout the cervical spine. C2-3: No disc bulging or facet joint hypertrophy. C3-4: Left-sided facet joint hypertrophy resulting in mild left-sided neuroforaminal stenosis. No posterior disc bulging or right-sided facet joint degeneration. C4-5: Mild left-sided facet joint hypertrophy without posterior disc bulging or stenosis. C5-6: Anterior disc bulging. Mild broad-based posterior disc bulging without facet joint hypertrophy, findings result in mild central canal stenosis with the central canal measuring 9 mm AP diameter. No neural foraminal stenosis. C6-7: Mild broad-based posterior disc bulging and bilateral uncovertebral joint hypertrophy resulting in moderate central canal and moderate bilateral neuroforaminal stenosis. The central canal measures 8 mm AP diameter. C7-T1: No disc bulging or facet joint degeneration. IMPRESSION: Posterior disc bulging with facet and/or uncovertebral joint hypertrophy at C5-6 and C6-7 resulting in central canal and neuroforaminal stenosis as detailed above, slightly worse at C6-7. Less advanced degenerative changes at C3-4 resulting in only mild left-sided neuroforaminal stenosis. Electronically signed by: Christiano Nur MD 03/13/2020 8:26 AM CDT
== END ==
LOC: MRI 14:00
PROVIDERS: ATTEND Family Medicine
DX: M50.30 Other cervical disc degeneration, unspecified cervical region (principal); M50.922 Unspecified cervical disc disorder at C5-C6 level; M50.923 Unspecified cervical disc disorder at C6-C7 level; M48.02 Spinal stenosis, cervical region

== ENCOUNTER 2020-04-28 10:13 | Emergency (ER) | payer MEDICARE, MEDICAID ==
--- NOTE | 2020-04-28 11:16 | ED.PDOC ---
History of Present Illness - General Chief Complaint: Respiratory Problem Stated Complaint: sore throat, headache Time Seen by Provider: 04/28/20 10:29 Source: patient Exam Limitations: no limitations - History of Present Illness Initial Comments: The patient is a 69-year-old female presented emergency room secondary to 3 to 4 days of sore throat. Mild runny nose. No real cough. No real nausea or vomiting. No definite fever. No known coronavirus exposure. Timing/Duration: constant Severity: moderate Improving Factors: nothing Worsening Factors: nothing Associated Symptoms: malaise Allergies/Adverse Reactions: Allergies Sulfamethoxazole w/Trimethoprim [From Bactrim] Allergy (Verified 06/29/19 13:55) Lidocaine Adverse Reaction (Verified 06/29/19 13:55) Metformin and Related Adverse Reaction (Verified 06/30/19 11:53) Nausea Home Medications: Ambulatory Orders Clonazepam 0.5 mg PO BEDTIME PRN 11/21/15 HYDROcodone 5MG/APAP 325MG [Raymond 5/325] 1 - 2 tab PO Q4H PRN 11/21/15 Insulin Aspart [Novolog Flexpen] See Protocol SC ACHS 11/21/15 Insulin Glargine [Lantus Solostar] 12 unit SC DAILY 11/21/15 Metformin HCl [Metformin Hydrochloride] 500 mg PO BID 11/21/15 Linaclotide [Linzess] 145 mcg PO DAILY 11/14/16 Pantoprazole Sodium 40 mg PO BEDTIME #30 tab 11/14/16 Pantoprazole Tablet [Protonix] 40 mg PO DAILY 11/14/16 Azithromycin Tab [Zithromax Tab] 250 mg PO QDAC #6 tab 11/07/18 Ondansetron [Zofran Odt] 4 mg PO Q4HR PRN #14 tab 11/07/18 Sucralfate Suspension [Carafate Suspension] 10 ml PO AC #500 ml 11/07/18 Azithromycin Tab [Zithromax Tab] 250 mg PO QD #4 tab 12/06/18 Benzonatate Perles [Tessalon Perles] 100 mg PO Q6HRS PRN #20 cap 12/06/18 Oseltamivir Capsule [Tamiflu] 75 mg PO BID 5 Days #10 capsule 10/31/19 Azithromycin 500 mg PO DAILY #5 tab 04/28/20 Review of Systems - Review of Systems Constitutional: States: malaise EENTM: States: nose congestion, throat pain Respiratory: States: no symptoms reported Cardiology: States: no symptoms reported Gastrointestinal/Abdominal: States: no symptoms reported Genitourinary: States: no symptoms reported Musculoskeletal: States: no symptoms reported Skin: States: no symptoms reported Neurological: States: no symptoms reported Endocrine: States: no symptoms reported All other Systems: No Change from Baseline Past Medical History (General) - Patient Medical History Hx Seizures: No Hx Stroke: No Hx Dementia: No Hx Asthma: Yes Hx of COPD: No Hx Cardiac Disorders: No Hx Congestive Heart Failure: No Hx Pacemaker: No Hx Hypertension: Yes Hx Thyroid Disease: No Hx Diabetes: Yes Hx Gastroesophageal Reflux: Yes Hx Renal Disease: No Hx Cancer: No Hx of HIV: No Hx Hepatitis C: No Hx MRSA: No Surgical History: Hysterectomy, other - Vaccination History Hx Tetanus, Diphtheria Vaccination: Yes Hx Influenza Vaccination: Yes - 2019 Hx Pneumococcal Vaccination: Yes - 2019 - Social History Hx Tobacco Use: Yes Hx Chewing Tobacco Use: No Hx Alcohol Use: No Hx Substance Use: No Hx Substance Use Treatment: No Hx Depression: No Hx Physical Abuse: No Hx Emotional Abuse: No Hx Suspected Abuse: No - Female History Patient : No Family Medical History - Family History Mother Family History: Unknown Living Status: Age at (years of age): 71 Cause of : Lung cancer/smoker Hx Family Hypertension: Yes - several family members Hx Family Stroke: Yes - multiple family members Hx Cardiac Disease: Yes - multiple family members Hx Family Cancer: Yes - colon-brother,ovary sister Physical Exam - Physical Exam General Appearance: Alert, Anxious, No apparent distress Eye Exam: bilateral normal Ears, Nose, Throat: hearing grossly normal, nasal congestion, pharyngeal erythema Neck: full range of motion, supple Respiratory: lungs clear, normal breath sounds, no respiratory distress, no accessory muscle use Cardiovascular/Chest: normal peripheral pulses, regular rate, rhythm, no edema Peripheral Pulses: radial,right: 2+, radial,left: 2+ Gastrointestinal/Abdominal: non tender, soft Rectal Exam: deferred Back Exam: no CVA tenderness, no vertebral tenderness Extremity: non-tender, normal inspection, no pedal edema, normal capillary refill Neurologic: plasterer rough II-XII nml as tested, alert, normal mood/affect, oriented x 3 Skin Exam: normal color Comments: Vital Signs - 24 hr 07/05/20 07/05/20 10:20 10:33 Temperature 97.5 F L Pulse Rate [ 64 right brachial] Respiratory 22 22 Rate Blood Pressure 165/114 [right brachial ] O2 Sat by Pulse 97 Oximetry Progress - Progress Progress: 04/28/20 11:18 The patient is a 69-year-old female presented emergency room with pharyngitis. She has tested negative for strep. This is most likely a viral p haryngitis and will have to run its course on its own, however the patient will be covered for atypical bacterial pathologies with a short course of oral azithromycin. She also needs to take 2 Aleve twice a day with food for the next 3 or 4 days to help reduce symptoms. She is to keep her self well-hydrated. She does understand that it is possible that this is due to coronavirus though unlikely given the symptoms and lack of obvious known exposure. She has deferred testing here today. She does understand that she can contact her primary care doctor this coming week to be tested if her symptoms change. Current turnaround time for testing through the emergency room here is approximately 10 days. The patient does understand she does need to isolate for at least the next 5 or 6 days regardless as this is most likely contagious even if it is not coronavirus. ER warnings are given for any abrupt worsening. mark contreras [id number] - Results/Orders Results/Orders: Rapid strep was negative. Departure - Departure Clinical Impression: Pharyngitis Qualifiers: Pharyngitis/tonsillitis etiology: unspecified etiology Qualified Code(s): J02.9 - Acute pharyngitis, unspecified Disposition: Discharge to Home or Self Care Condition: Fair Departure Forms: ED Discharge - Pt. Copy, Patient Portal Self Enrollment Instructions: Sore Throat, Adult (DC) Diet: regular diet Activity: increase activity as tolerated Referrals: Naldo Contreras MD [Primary Care Provider] - 1-2 Weeks Prescriptions: Azithromycin 500 mg PO DAILY #5 tab Home Medications: Ambulatory Orders Clonazepam 0.5 mg PO BEDTIME PRN 11/21/15 HYDROcodone 5MG/APAP 325MG [Raymond 5/325] 1 - 2 tab PO Q4H PRN 11/21/15 Insulin Aspart [Novolog Flexpen] See Protocol SC ACHS 11/21/15 Insulin Glargine [Lantus Solostar] 12 unit SC DAILY 11/21/15 Metformin HCl [Metformin Hydrochloride] 500 mg PO BID 11/21/15 Linaclotide [Linzess] 145 mcg PO DAILY 11/14/16 Pantoprazole Sodium 40 mg PO BEDTIME #30 tab 11/14/16 Pantoprazole Tablet [Protonix] 40 mg PO DAILY 11/14/16 Azithromycin Tab [Zithromax Tab] 250 mg PO QDAC #6 tab 11/07/18 Ondansetron [Zofran Odt] 4 mg PO Q4HR PRN #14 tab 11/07/18 Sucralfate Suspension [Carafate Suspension] 10 ml PO AC #500 ml 11/07/18 Azithromycin Tab [Zithromax Tab] 250 mg PO QD #4 tab 12/06/18 Benzonatate Perles [Tessalon Perles] 100 mg PO Q6HRS PRN #20 cap 12/06/18 Oseltamivir Capsule [Tamiflu] 75 mg PO BID 5 Days #10 capsule 10/31/19 Azithromycin 500 mg PO DAILY #5 tab 04/28/20 Additional Instructions: The patient is a 69-year-old female presented emergency room with pharyngitis. She has tested negative for strep. This is most likely a viral pharyngitis and will have to run its course on its own, however the patient will be covered for atypical bacterial pathologies with a short course of oral azithromycin. She also needs to take 2 Aleve twice a day with food for the next 3 or 4 days to help reduce symptoms. She is to keep her self well-hydrated. She does understand that it is possible that this is due to coronavirus though unlikely given the symptoms and lack of obvious known exposure. She has deferred testing here today. She does understand that she can contact her primary care doctor this coming week to be tested if her symptoms change. Current turnaround time for testing through the emergency room here is approximately 10 days. The patient does understand she does need to isolate for at least the next 5 or 6 days regardless as this is most likely contagious even if it is not coronavirus. ER warnings are given for any abrupt worsening.
[2020-04-28 11:25] VITALS: BP 148/64; TEMP 97.4; O2SAT 95
== END 2020-04-28 11:30 | disposition home or self-care (01) ==
LOC: ER 10:13
DX: J02.9 Acute pharyngitis, unspecified (principal); E11.9 Type 2 diabetes mellitus without complications; I10 Essential (primary) hypertension; F17.200 Nicotine dependence, unspecified, uncomplicated; Z79.899 Other long term (current) drug therapy; Z79.4 Long term (current) use of insulin

== ENCOUNTER → 2020-05-06 | Outpatient (CLI) | payer MEDICARE, MEDICAID | LOC: GMAM 16:45 | PROVIDERS: ATTEND Family Medicine | DX: R53.83 Other fatigue (principal); I10 Essential (primary) hypertension; E11.9 Type 2 diabetes mellitus without complications ==

== ENCOUNTER → 2020-05-23 | Outpatient (CLI) | payer MEDICARE, MEDICAID ==
--- NOTE | 2020-05-24 10:27 | CT ---
EXAM DESCRIPTION: Chest w/o Contrast CLINICAL HISTORY: 69 years, Female, COPD COMPARISON: March 24, 2019 TECHNIQUE: Thin-section noncontrast axial CT images are obtained according to our protocol. Reconstructed MPR images are created and reviewed as well. This exam was performed according to our departmental dose-optimization program, which includes automated exposure control, adjustment of the mA and/or kV according to patient size and/or use of iterative reconstruction technique. FINDINGS: Follow-up noncontrast chest CT demonstrates mild emphysematous changes. Small 3 mm subpleural nodule in the posterior left lung base is stable and unchanged and likely calcified. An additional 3 mm nodule subpleural in the posterior right lower lung field in retrospect is unchanged from prior study as well. No dominant pulmonary mass or infiltrate or pleural effusion is seen. Soft tissue images demonstrate mild vascular calcification. Thoracic inlet and superior and middle mediastinum are unremarkable. A tiny retrocardiac hiatal hernia noted. The paratracheal and hilar regions and aorticopulmonary window are normal. No infiltrates or effusions noted. Dorsal spine is normally aligned without destructive process or severe degenerative changes. IMPRESSION: 1. Small 3 mm subpleural bilateral posterior basilar pulmonary nodules, both in retrospect unchanged from previous years study. This represents a lung RADS category two study and routine one year screening follow-up CT examination for stability recommended. 2. Mild bilateral emphysematous change with no acute inflammatory process or dominant mass or adenopathy. Category 2 - Nodules with a very low likelihood (less than 1%) of becoming a clinically active cancer due to size or lack of growth. Nodules: Solid or part solid nodule(s) less than 6mm, new solid nodule less than 4mm. Ground glass nodule(s) less than 20mm or unchanged or slow growing ground glass nodule 20mm or greater. Cat 3 or 4 nodule unchanged for 3 or more months. Follow-up: Continue annual screening with a Low Dose Chest CT in 12 months for re-evaluation. Electronically signed by: Naldo Ernst MD 05/24/2020 10:25 AM CDT
== END ==
LOC: CT 14:00
PROVIDERS: ATTEND Internal Medicine
DX: J43.9 Emphysema, unspecified (principal); R91.8 Other nonspecific abnormal finding of lung field

== ENCOUNTER → 2020-06-05 | Outpatient (CLI) | payer MEDICARE, MEDICAID ==
--- NOTE | 2020-06-06 08:55 | US ---
EXAM DESCRIPTION: Venous,Upper Extremity RT: ULTRASOUND. CLINICAL HISTORY: LOCALIZED SWELLING, MASS AND LUMP COMPARISON: None Available. TECHNIQUE: Two -dimensional and doppler sonographic evaluation of the deep venous system of the right upper extremity. FINDINGS: Doppler evaluation shows normal color flow and normal phasicity and augmentation of the right subclavian, jugular, axillary, basilic, cephalic, brachial, radial vein and ulnar vein. The right upper extremity deep veins showed normal occlusion with transducer pressure. Two-dimensional survey showed no echogenic thrombus within these veins. IMPRESSION: Duplex ultrasound evaluation of the right upper extremity deep venous system showing no evidence of thrombosis . Electronically signed by: Vito Dickey MD 06/06/2020 8:54 AM CDT
== END ==
LOC: US 09:00
PROVIDERS: ATTEND Family Medicine
DX: R22.31 Localized swelling, mass and lump, right upper limb (principal)

== ENCOUNTER → 2020-06-17 | Outpatient (CLI) | payer MEDICARE, MEDICAID | END | disposition home or self-care (01) | LOC: US 14:00 | PROVIDERS: ATTEND Family Medicine | DX: N63.11 Unspecified lump in the right breast, upper outer quadrant (principal) | CPT/HCPCS: 76641; 77065; G0279 ==

== ENCOUNTER → 2020-07-12 | Outpatient (CLI) | payer MEDICARE, MEDICAID ==
--- NOTE | 2020-07-13 16:27 | RAD ---
EXAM DESCRIPTION: Shoulder,Right 2 or More Views CLINICAL HISTORY: SHOULDER PAIN RIGHT COMPARISON: None Available. TECHNIQUE: Three x-ray views of the right shoulder. FINDINGS: There is adequate internal and external rotation. Normal alignment on transscapular Y view. There is no fracture or dislocation. Degenerative spurring at the medial humeral head neck junction and at the inferior margin of the glenoid. No focal bone lesion. IMPRESSION: Negative for fracture or dislocation. Degenerative changes as described. Electronically signed by: Ceferino Haines MD 07/13/2020 4:25 PM CDT
== END ==
LOC: RAD 10:24
PROVIDERS: ATTEND Orthopaedic Surgery
DX: M25.511 Pain in right shoulder (principal); M25.711 Osteophyte, right shoulder

== ENCOUNTER → 2020-08-09 | Outpatient (CLI) | payer MEDICARE, MEDICAID | LOC: GMA CAST 12:36 | PROVIDERS: ATTEND Family Medicine Sports Medicine | DX: R30.0 Dysuria (principal) ==

== ENCOUNTER → 2020-09-03 | Outpatient (CLI) | payer MEDICARE, MEDICAID | LOC: GMAM 14:41 | PROVIDERS: ATTEND Family Medicine | DX: R50.9 Fever, unspecified (principal); E55.9 Vitamin D deficiency, unspecified; R53.83 Other fatigue ==

== ENCOUNTER → 2020-09-11 | Outpatient (CLI) | payer MEDICARE, MEDICAID | LOC: LAB.O 14:08 | PROVIDERS: ATTEND Urology | DX: R31.0 Gross hematuria (principal); R82.998 Other abnormal findings in urine ==

== ENCOUNTER → 2020-11-25 | Outpatient (CLI) | payer MEDICARE, MEDICAID ==
--- NOTE | 2020-11-26 08:02 | CT ---
EXAM: Chest w/Contrast CLINICAL HISTORY: PULMONARY NODULE COMPARISON STUDY: CT chest from May 23, 2020 and the visible portion of the chest from a CT abdomen and pelvis 2016 TECHNICAL: Post contrast CT images were performed through the chest. Sagittal and coronal reconstructions were acquired. FINDINGS: Soft tissue or mediastinal windows demonstrate no mass or lymphadenopathy. The heart is not enlarged. The aorta is non-dilated. There is no sign of an aortic dissection. The pulmonary arterial system as imaged is negative. The limited images of the upper abdomen are negative. Pulmonary parenchymal windows show no mass, consolidation, interstitial pulmonary edema, or pleural effusion. There is a posterior left lower lobe calcified granuloma that is benign. There is a tiny nodular density in the dependent aspect of the right lower lobe has been present for greater than four years and is likely benign. Lung base evaluation is slightly limited by patient respiratory motion. A chronic atelectasis in the right middle lobe is unchanged. IMPRESSION: 1. Less than 3 mm right lower lobe pulmonary nodules been stable for greater than four years and requires no further imaging follow-up. The described left lower lobe abnormality is a calcified granuloma and requires no further imaging follow-up. 2. No acute intrathoracic abnormality. Lung RADS Category 2: Benign This exam was performed according to our departmental dose-optimization program, which includes automated exposure control, adjustment of the mA and/or kV according to patient size and/or use of iterative reconstruction technique. Electronically signed by: Bryn Reyes MD 11/26/2020 8:01 AM STATIC BALANCER
== END ==
LOC: CT 13:39
PROVIDERS: ATTEND Family Medicine
DX: Z01.812 Encounter for preprocedural laboratory examination (principal); R91.8 Other nonspecific abnormal finding of lung field

== ENCOUNTER → 2020-12-19 | Outpatient (CLI) | payer MEDICARE, MEDICAID | LOC: GMAM 16:47 | PROVIDERS: ATTEND Family Medicine | DX: R11.0 Nausea (principal); B96.81 Helicobacter pylori [H. pylori] as the cause of diseases classified elsewhere ==